=== PATIENT | female | born 1945 | race Caucasian/White ===

== ENCOUNTER 2018-07-07 05:42 | Day surgery (SDC) | payer OTHER, BC ==
[2018-07-06 18:13] VITALS: BMI 19.2
[2018-07-07 07:13] VITALS: TEMP 98
--- NOTE | 2018-07-07 07:18 | HP ---
Admitting History and Physical - Admission History of Present Illness: Patient is a 72 y/o female with a past medical history of depression. Patient reports she has been struggling with depression for all of her life. She was recently discharged from [facility] last week following a 2 week admission. Patient reports she has received 11 ect during her admission. Patient does report a significant improvement in depressive symptom since starting ect. Patient denies any suicidal or homicidal ideation, visual or auditory hallucinations. History Source: Patient Limitations to Obtaining History: No Limitations - Smoking History Smoking history: Never smoked Have you smoked in the past 12 months: No - Alcohol/Substance Use Hx Alcohol Use: No History of Substance Use: reports: None - Social History Usual Living Arrangement: Yes: Alone ADL: Independent History of Recent Travel: No Home Medications - Allergies Allergies/Adverse Reactions: Allergies Allergy/AdvReac Type Severity Reaction Status Date / Time No Known Allergies Allergy Verified 07/06/18 18:02 - Home Medications Home Medications: Ambulatory Orders Aripiprazole [Abilify] 10 mg PO DAILY 07/06/18 Venlafaxine HCl ER [Effexor Xr -] 75 mg PO DAILY 07/06/18 Family Disease History - Family Disease History Family History: Denies Review of Systems - Review of Systems Constitutional: reports: No Symptoms Eyes: reports: No Symptoms HENT: reports: No Symptoms Neck: reports: No Symptoms Cardiovascular: reports: No Symptoms Respiratory: reports: No Symptoms Gastrointestinal: reports: No Symptoms Genitourinary: reports: No Symptoms Breasts: reports: No Symptoms Reported Musculoskeletal: reports: No Symptoms Integumentary: reports: No Symptoms Neurological: reports: No Symptoms Endocrine: reports: No Symptoms Hematology/Lymphatic: reports: No Symptoms Psychiatric: reports: No Symptoms Physical Examination Vital Signs: Vital Signs Temperature 98.0 F 07/07/18 07:10 Pulse Rate 64 07/07/18 07:10 Respiratory Rate 18 07/07/18 07:10 Blood Pressure 124/71 07/07/18 07:10 O2 Sat by Pulse Oximetry (%) 98 07/07/18 07:10 Constitutional: Yes: Well Nourished, No Distress, Calm Eyes: Yes: WNL, Conjunctiva Clear, EOM Intact HENT: Yes: WNL, Atraumatic, Normocephalic Neck: Yes: WNL, Supple, Trachea Midline Cardiovascular: Yes: WNL, Regular Rate and Rhythm, S1, S2 Respiratory: Yes: WNL, Regular, CTA Bilaterally Gastrointestinal: Yes: WNL, Normal Bowel Sounds, Soft ...Rectal Exam: Yes: Deferred Renal/: Yes: WNL Musculoskeletal: Yes: WNL Extremities: Yes: WNL Edema: No Peripheral Pulses WNL: Yes Peripheral Pulses: Left Radial: 4+, Right Radial: 4+, Left Doralis Pedis: 3+, Right Dorsalis Pedis: 3+, Left Femoral: 3+, Right Femoral: 3+ Integumentary: Yes: WNL Neurological: Yes: WNL, Alert, Oriented ...Motor Strength: WNL Psychiatric: Yes: WNL, Alert, Oriented Labs: labs reviewed 06/06 Imaging - Results EKG: Other (nsr) Assessment/Plan patient is a 72 y/o female that presents for ect, labs and ekg reviewed, patient is medically optimized for procedure informed consent, risks/benefits to be obtained by Dr Smith
[2018-07-07] MEDS ORDERED: KETAMINE HCL 500 MG/10 ML VIAL ONE (07:52)
[2018-07-07 09:24] VITALS: BP 140/77; PULSE 69
== END 2018-07-07 09:25 | disposition home or self-care (01) ==
LOC: FECT 05:42
PROVIDERS: ATTEND Psychiatry & Neurology Psychiatry
PROC: GZB4ZZZ Other Electroconvulsive Therapy (ICD-10-PCS; principal; 2018-07-07 07:45)
DX: F33.2 Major depressive disorder, recurrent severe without psychotic features (principal)
CPT/HCPCS: 90870; 94760

== ENCOUNTER 2018-07-14 05:43 | Day surgery (SDC) | payer OTHER, BC ==
[2018-07-07 13:29] VITALS: BMI 19.2
[2018-07-14] MEDS ORDERED: KETAMINE HCL 500 MG/10 ML VIAL ONE (06:59)
[2018-07-14 08:37] VITALS: TEMP 97.7
[2018-07-14 09:02] VITALS: BP 116/66; PULSE 69
== END 2018-07-14 09:20 | disposition home or self-care (01) ==
LOC: FECT 05:43
PROVIDERS: ATTEND Psychiatry & Neurology Psychiatry
PROC: GZB4ZZZ Other Electroconvulsive Therapy (ICD-10-PCS; principal; 2018-07-14 07:00)
DX: F33.2 Major depressive disorder, recurrent severe without psychotic features (principal)
CPT/HCPCS: 90870; 94760

== ENCOUNTER 2018-07-21 05:38 | Day surgery (SDC) | payer OTHER, BC ==
[2018-07-21 06:49] VITALS: BMI 19.8
[2018-07-21] MEDS ORDERED: KETAMINE HCL 500 MG/10 ML VIAL ONE (07:27)
[2018-07-21 08:43] VITALS: TEMP 98.3
[2018-07-21 09:09] VITALS: BP 138/78; PULSE 79
== END 2018-07-21 09:15 | disposition home or self-care (01) ==
LOC: FECT 05:38
PROVIDERS: ATTEND Psychiatry & Neurology Psychiatry
PROC: GZB4ZZZ Other Electroconvulsive Therapy (ICD-10-PCS; principal; 2018-07-21 07:15)
DX: F33.2 Major depressive disorder, recurrent severe without psychotic features (principal)
CPT/HCPCS: 90870; 94760

== ENCOUNTER 2018-07-28 05:40 | Day surgery (SDC) | payer OTHER, BC ==
[2018-07-28 06:47] VITALS: TEMP 98.3; BMI 19.7
[2018-07-28] MEDS ORDERED: KETAMINE HCL 500 MG/10 ML VIAL ONE (07:10)
[2018-07-28 08:49] VITALS: BP 141/74; PULSE 69
== END 2018-07-28 08:45 | disposition home or self-care (01) ==
LOC: FECT 05:40
PROVIDERS: ATTEND Psychiatry & Neurology Psychiatry
PROC: GZB4ZZZ Other Electroconvulsive Therapy (ICD-10-PCS; principal; 2018-07-28 07:00)
DX: F33.2 Major depressive disorder, recurrent severe without psychotic features (principal)
CPT/HCPCS: 90870; 94760

== ENCOUNTER 2018-08-04 05:40 | Day surgery (SDC) | payer OTHER, BC ==
[2018-07-24 14:07] VITALS: BMI 19.2
[2018-08-04] MEDS ORDERED: KETAMINE HCL 500 MG/10 ML VIAL ONE (06:52)
[2018-08-04] MEDS ORDERED: ONDANSETRON 4 MG/2 ML VIAL IVPUSH PRN (07:44)
[2018-08-04] MEDS ORDERED: ACETAMINOPHEN 325 MG TABLET (FP) PO PRN (07:44)
[2018-08-04] MEDS ORDERED: LACTATED RINGERS SOLUTION 1,000 ML IV SCH (07:45)
[2018-08-04 08:09] VITALS: TEMP 97.7
[2018-08-04 09:01] VITALS: BP 140/56; PULSE 72
== END 2018-08-04 09:20 | disposition home or self-care (01) ==
LOC: FECT 05:40
PROVIDERS: ATTEND Psychiatry & Neurology Psychiatry
PROC: GZB4ZZZ Other Electroconvulsive Therapy (ICD-10-PCS; principal; 2018-08-04 07:00)
DX: F33.2 Major depressive disorder, recurrent severe without psychotic features (principal)
CPT/HCPCS: 90870; 94760

== ENCOUNTER 2018-08-11 05:40 | Day surgery (SDC) | payer OTHER, BC ==
[2018-08-03 11:51] VITALS: BMI 19.2
[2018-08-11 06:56] VITALS: TEMP 98
--- NOTE | 2018-08-11 07:18 | HP ---
Admitting History and Physical - Admission History of Present Illness: Patient is a 72 y/o female with a past medical history of depression. Patient presents for ect, her last ect was 08/04/18. Patient reports a significant improvement in depressive symptoms since starting ect. patient denies any changes to her medication and reports compliance with prescribed medications. Patient denies any recent illnesses or hospitalizations. Patient denies any suicidal or homicidal ideation, visual or auditory hallucinations. History Source: Patient Limitations to Obtaining History: No Limitations - Smoking History Smoking history: Never smoked Have you smoked in the past 12 months: No - Alcohol/Substance Use Hx Alcohol Use: No History of Substance Use: reports: None - Social History Usual Living Arrangement: Yes: With Spouse ADL: Independent History of Recent Travel: No Home Medications - Allergies Allergies/Adverse Reactions: Allergies Allergy/AdvReac Type Severity Reaction Status Date / Time No Known Allergies Allergy Verified 07/06/18 18:02 - Home Medications Home Medications: Ambulatory Orders Aripiprazole [Abilify] 10 mg PO DAILY 07/06/18 Venlafaxine HCl ER [Effexor Xr -] 75 mg PO DAILY 07/06/18 Family Disease History - Family Disease History Family History: Denies Review of Systems - Review of Systems Constitutional: reports: No Symptoms Eyes: reports: No Symptoms HENT: reports: No Symptoms Neck: reports: No Symptoms Cardiovascular: reports: No Symptoms Respiratory: reports: No Symptoms Gastrointestinal: reports: No Symptoms Genitourinary: reports: No Symptoms Musculoskeletal: reports: No Symptoms Integumentary: reports: No Symptoms Neurological: reports: No Symptoms Endocrine: reports: No Symptoms Hematology/Lymphatic: reports: No Symptoms Psychiatric: reports: No Symptoms Physical Examination Vital Signs: Vital Signs Temperature 98.0 F 08/11/18 06:54 Pulse Rate 73 08/11/18 06:54 Respiratory Rate 18 08/11/18 06:54 Blood Pressure 116/57 L 08/11/18 06:54 O2 Sat by Pulse Oximetry (%) 99 08/11/18 06:54 Constitutional: Yes: Well Nourished, No Distress, Calm Eyes: Yes: WNL, Conjunctiva Clear, EOM Intact HENT: Yes: WNL, Atraumatic, Normocephalic Neck: Yes: WNL, Supple, Trachea Midline Cardiovascular: Yes: WNL, Regular Rate and Rhythm, S1, S2 Respiratory: Yes: WNL, Regular, CTA Bilaterally Gastrointestinal: Yes: WNL, Normal Bowel Sounds, Soft ...Rectal Exam: Yes: Deferred Renal/: Yes: WNL Musculoskeletal: Yes: WNL Extremities: Yes: WNL Edema: No Peripheral Pulses WNL: Yes Peripheral Pulses: Left Radial: 4+, Right Radial: 4+, Left Doralis Pedis: 3+, Right Dorsalis Pedis: 3+, Left Femoral: 3+, Right Femoral: 3+ Integumentary: Yes: WNL Neurological: Yes: WNL, Alert, Oriented, Cran Nerves II-XII Intact ...Motor Strength: WNL Psychiatric: Yes: WNL, Alert, Oriented Labs: reviewed 06/06 Imaging - Results EKG: Image Reviewed, Other (nsr) Assessment/Plan patient is a 72 y/o female that presents for ect, labs and ekg reviewed patient is medically optimized for procedure informed consent, risks/benefits to be obtained by Dr Smith
[2018-08-11] MEDS ORDERED: KETAMINE HCL 500 MG/10 ML VIAL ONE (07:26)
[2018-08-11 09:04] VITALS: BP 120/81; PULSE 74
== END 2018-08-11 09:30 | disposition home or self-care (01) ==
LOC: FECT 05:40
PROVIDERS: ATTEND Psychiatry & Neurology Psychiatry
PROC: GZB4ZZZ Other Electroconvulsive Therapy (ICD-10-PCS; principal; 2018-08-11 07:00)
DX: F33.2 Major depressive disorder, recurrent severe without psychotic features (principal)
CPT/HCPCS: 90870; 94760

== ENCOUNTER 2018-08-18 05:34 | Day surgery (SDC) | payer OTHER, BC ==
[2018-08-18 07:08] VITALS: BMI 19.2
[2018-08-18] MEDS ORDERED: KETAMINE HCL 500 MG/10 ML VIAL ONE (07:31)
[2018-08-18 08:50] VITALS: TEMP 98.3
[2018-08-18 09:12] VITALS: BP 144/74; PULSE 71
== END 2018-08-18 09:30 | disposition home or self-care (01) ==
LOC: FECT 05:34
PROVIDERS: ATTEND Psychiatry & Neurology Psychiatry
PROC: GZB4ZZZ Other Electroconvulsive Therapy (ICD-10-PCS; principal; 2018-08-18 07:00)
DX: F33.2 Major depressive disorder, recurrent severe without psychotic features (principal)
CPT/HCPCS: 90870; 94760

== ENCOUNTER 2018-08-27 05:40 | Day surgery (SDC) | payer OTHER, BC ==
[2018-08-13 17:17] VITALS: BMI 19.2
[2018-08-27 06:53] VITALS: TEMP 98.2
[2018-08-27] MEDS ORDERED: KETAMINE HCL 500 MG/10 ML VIAL ONE (07:24)
[2018-08-27 09:18] VITALS: BP 139/72; PULSE 77
== END 2018-08-27 09:20 | disposition home or self-care (01) ==
LOC: FECT 05:40
PROVIDERS: ATTEND Psychiatry & Neurology Psychiatry
PROC: GZB4ZZZ Other Electroconvulsive Therapy (ICD-10-PCS; principal; 2018-08-27 07:30)
DX: F33.2 Major depressive disorder, recurrent severe without psychotic features (principal)
CPT/HCPCS: 90870; 94760

== ENCOUNTER 2018-09-08 05:44 | Day surgery (SDC) | payer OTHER, BC ==
[2018-08-26 17:55] VITALS: BMI 19.2
[2018-09-08 07:18] VITALS: TEMP 98
--- NOTE | 2018-09-08 07:39 | HP ---
CHIEF COMPLAINT: Major Depression PCP: Dr. Mariaelena Larios, [facility] Primary psychiatrist: Dr. Avendano, [place] HISTORY OF PRESENT ILLNESS: 72 year-old female with a PMH significant for major depression. Patient has been undergoing ECT since 2017. She presents today for ECT. Recent events: None PAST MEDICAL HISTORY: Major Depression PAST SURGICAL HISTORY: Spinal cyst removal (age 13) Tubal ligation Social History: lives with spouse who has dementia Smoking: never Alcohol: no Drugs: no Family History: Allergies No Known Allergies Allergy (Verified 07/06/18 18:02) HOME MEDICATIONS: Home Medications Medication Instructions Recorded Aripiprazole [Abilify] 10 mg PO DAILY 07/06/18 Venlafaxine HCl ER [Effexor Xr -] 75 mg PO DAILY 07/06/18 REVIEW OF SYSTEMS CONSTITUTIONAL: Absent: fever, chills, diaphoresis, generalized weakness, malaise, loss of appetite, weight change HEENT: Absent: rhinorrhea, nasal congestion, throat pain, throat swelling, difficulty swallowing, mouth swelling, ear pain, eye pain, visual changes CARDIOVASCULAR: Absent: chest pain, syncope, palpitations, irregular heart rate, lightheadedness , peripheral edema RESPIRATORY: Absent: cough, shortness of breath, dyspnea with exertion, orthopnea, wheezing, stridor, hemoptysis GASTROINTESTINAL: Absent: abdominal pain, abdominal distension, nausea, vomiting, diarrhea, constipation, melena, hematochezia GENITOURINARY: Absent: dysuria, frequency, urgency, hesitancy, hematuria, flank pain, genital pain MUSCULOSKELETAL: Absent: myalgia, arthralgia, joint swelling, back pain, neck pain SKIN: Absent: rash, itching, pallor HEMATOLOGIC/IMMUNOLOGIC: Absent: easy bleeding, easy bruising, lymphadenopathy, frequent infections ENDOCRINE: Absent: unexplained weight gain, unexplained weight loss, heat intolerance, cold intolerance NEUROLOGIC: Absent: headache, focal weakness or paresthesias, dizziness, unsteady gait, seizure, mental status changes, bladder or bowel incontinence PSYCHIATRIC: Absent: anxiety, depression, suicidal or homicidal ideation, hallucinations. PHYSICAL EXAMINATION Vital Signs - 24 hr 09/08/18 07:14 Temperature 98.0 F Pulse Rate 70 Respiratory 18 Rate Blood Pressure 141/69 O2 Sat by Pulse 99 Oximetry (%) GENERAL: Awake, alert, and fully oriented, in no acute distress. HEAD: Normal with no signs of trauma. LUNGS: Breath sounds equal, clear to auscultation bilaterally. No wheezes, and no crackles. No accessory muscle use. HEART: Regular rate and rhythm, normal S1 and S2 without murmur, rub or gallop. ABDOMEN: Soft, nontender, not distended, normoactive bowel sounds, no guarding, no rebound, no masses. No hepatomegaly or splenomegaly. MUSCULOSKELETAL: Normal range of motion at all joints. No bony deformities or tenderness. No CVA tenderness. UPPER EXTREMITIES: 2+ pulses, warm, well-perfused. No cyanosis. No clubbing. No peripheral edema. LOWER EXTREMITIES: 2+ pulses, warm, well-perfused. No calf tenderness. No peripheral edema. NEUROLOGICAL: Cranial nerves II-XII intact. Normal speech. Normal gait. ASSESSMENT/PLAN: 72 year-old female with a PMH significant for major depression. Presents today for ECT. Cardiac --Revised Cardiac Risk Index for Pre-Operative Risk: 0 points, 0.4% risk of major cardiac event Pulmonary --no pulmonary history Neurological --no neurological or neurosurgical history; no history of trauma Anesthesia --no known history of problems with anesthesia ECT is a low risk procedure. The relative benefits of the planned procedure outweigh the relative risks for this patient at this time. Visit type - Emergency Visit Emergency Visit: No - New Patient This patient is new to me today: Yes Date on this admission: 09/08/18 - Critical Care Critical Care patient: No
[2018-09-08] MEDS ORDERED: KETAMINE HCL 500 MG/10 ML VIAL ONE (08:10)
[2018-09-08 09:51] VITALS: BP 135/78; PULSE 77
== END 2018-09-08 09:45 | disposition home or self-care (01) ==
LOC: FECT 05:44
PROVIDERS: ATTEND Psychiatry & Neurology Psychiatry
PROC: GZB4ZZZ Other Electroconvulsive Therapy (ICD-10-PCS; principal; 2018-09-08 07:00)
DX: F33.2 Major depressive disorder, recurrent severe without psychotic features (principal)
CPT/HCPCS: 90870; 94760

== ENCOUNTER 2018-09-23 05:46 | Day surgery (SDC) | payer OTHER, BC ==
[2018-09-07 14:33] VITALS: BMI 19.2
[2018-09-23] MEDS ORDERED: KETAMINE HCL 500 MG/10 ML VIAL ONE (08:27)
[2018-09-23 09:24] VITALS: TEMP 98.7
[2018-09-23 09:57] VITALS: BP 136/59; PULSE 74
== END 2018-09-23 09:58 | disposition home or self-care (01) ==
LOC: FECT 05:46
PROVIDERS: ATTEND Psychiatry & Neurology Psychiatry
PROC: GZB4ZZZ Other Electroconvulsive Therapy (ICD-10-PCS; principal; 2018-09-23 08:00)
DX: F33.2 Major depressive disorder, recurrent severe without psychotic features (principal)
CPT/HCPCS: 90870; 94760

== ENCOUNTER 2018-10-07 05:43 | Day surgery (SDC) | payer OTHER, BC ==
[2018-10-07 06:51] VITALS: TEMP 97.9; BMI 18.8
[2018-10-07] MEDS ORDERED: KETAMINE HCL 500 MG/10 ML VIAL ONE (07:03)
[2018-10-07 09:17] VITALS: BP 131/69; PULSE 87
== END 2018-10-07 09:37 | disposition home or self-care (01) ==
LOC: FECT 05:43
PROVIDERS: ATTEND Psychiatry & Neurology Psychiatry
PROC: GZB4ZZZ Other Electroconvulsive Therapy (ICD-10-PCS; principal; 2018-10-07 07:45)
DX: F33.2 Major depressive disorder, recurrent severe without psychotic features (principal)
CPT/HCPCS: 90870; 94760

== ENCOUNTER 2018-10-21 05:49 | Day surgery (SDC) | payer OTHER, BC ==
[2018-10-08 15:13] VITALS: BMI 18.8
[2018-10-21] MEDS ORDERED: ONDANSETRON 4 MG/2 ML VIAL IVPUSH PRN (07:27)
[2018-10-21] MEDS ORDERED: LACTATED RINGERS SOLUTION 1,000 ML IV SCH (07:30)
[2018-10-21] MEDS ORDERED: KETAMINE HCL 500 MG/10 ML VIAL ONE (08:23)
[2018-10-21 11:08] VITALS: BP 118/66; PULSE 76; TEMP 98
--- NOTE | 2018-10-22 18:37 | HP ---
CHIEF COMPLAINT: Major Depressive Disorder HISTORY OF PRESENT ILLNESS: 72 year-old female with a PMH significant for major depressive disorder. Patient began ECT in June 2018. She presents today for ECT. Recent Events: * None reported PAST MEDICAL HISTORY: Major depressive disorder PAST SURGICAL HISTORY: None reported Allergies No Known Allergies Allergy (Verified 07/06/18 18:02) HOME MEDICATIONS: Home Medications Medication Instructions Recorded Aripiprazole [Abilify] 10 mg PO DAILY 07/06/18 Venlafaxine HCl ER [Effexor Xr -] 75 mg PO DAILY 07/06/18 REVIEW OF SYSTEMS CONSTITUTIONAL: Absent: fever, chills, diaphoresis, generalized weakness, malaise, loss of appetite, weight change HEENT: Absent: rhinorrhea, nasal congestion, throat pain, throat swelling, difficulty swallowing, mouth swelling, ear pain, eye pain, visual changes CARDIOVASCULAR: Absent: chest pain, syncope, palpitations, irregular heart rate, lightheadedness , peripheral edema RESPIRATORY: Absent: cough, shortness of breath, dyspnea with exertion, orthopnea, wheezing, stridor, hemoptysis GASTROINTESTINAL: Absent: abdominal pain, abdominal distension, nausea, vomiting, diarrhea, constipation, melena, hematochezia GENITOURINARY: Absent: dysuria, frequency, urgency, hesitancy, hematuria, flank pain, genital pain MUSCULOSKELETAL: Absent: myalgia, arthralgia, joint swelling, back pain, neck pain SKIN: Absent: rash, itching, pallor HEMATOLOGIC/IMMUNOLOGIC: Absent: easy bleeding, easy bruising, lymphadenopathy, frequent infections ENDOCRINE: Absent: unexplained weight gain, unexplained weight loss, heat intolerance, cold intolerance NEUROLOGIC: Absent: headache, focal weakness or paresthesias, dizziness, unsteady gait, seizure, mental status changes, bladder or bowel incontinence PHYSICAL EXAMINATION GENERAL: Awake, alert, and fully oriented, in no acute distress. HEAD: Normal with no signs of trauma. EYES: Pupils equal, round and reactive to light, sclera anicteric, conjunctiva clear. LUNGS: Breath sounds equal, clear to auscultation bilaterally. No wheezes, and no crackles. No accessory muscle use. HEART: Regular rate and rhythm, normal S1 and S2 ABDOMEN: Soft, nontender, not distended MUSCULOSKELETAL: Normal range of motion at all joints. No bony deformities or tenderness. No CVA tenderness. UPPER EXTREMITIES: 2+ pulses, warm, well-perfused. No cyanosis. No clubbing. No peripheral edema. LOWER EXTREMITIES: 2+ pulses, warm, well-perfused. No calf tenderness. No peripheral edema. NEUROLOGICAL: Cranial nerves II-XII intact. Normal speech. ASSESSMENT/PLAN: Cardiac --no cardiac history --Revised Cardiac Risk Index for Pre-Operative Risk: 0 points, 0.4% risk of major cardiac event Pulmonary --no pulmonary history Neurological --no neurological or neurosurgical history; no history of trauma Anesthesia --no reported problems with anesthesia ECT is a low risk procedure. The relative benefits of the planned procedure outweigh the relative risks for this patient at this time. Visit type - Emergency Visit Emergency Visit: No - New Patient This patient is new to me today: Yes Date on this admission: 10/22/18 - Critical Care Critical Care patient: No
== END 2018-10-21 10:45 | disposition home or self-care (01) ==
LOC: FECT 05:49
PROVIDERS: ATTEND Psychiatry & Neurology Psychiatry
PROC: GZB4ZZZ Other Electroconvulsive Therapy (ICD-10-PCS; principal; 2018-10-21 07:30)
DX: F33.2 Major depressive disorder, recurrent severe without psychotic features (principal)
CPT/HCPCS: 90870; 94760

== ENCOUNTER 2018-11-03 05:43 | Day surgery (SDC) | payer OTHER, BC ==
[2018-11-03] MEDS ORDERED: ONDANSETRON 4 MG/2 ML VIAL IVPUSH PRN (06:39)
[2018-11-03 07:21] VITALS: TEMP 97.9; BMI 18.9
[2018-11-03] MEDS ORDERED: KETAMINE HCL SYRINGES 150 MG/3 ML VIAL ONE (07:50)
[2018-11-03 10:19] VITALS: BP 144/73; PULSE 66
== END 2018-11-03 10:30 | disposition home or self-care (01) ==
LOC: FECT 05:43
PROVIDERS: ATTEND Psychiatry & Neurology Psychiatry
PROC: GZB4ZZZ Other Electroconvulsive Therapy (ICD-10-PCS; principal; 2018-11-03 07:00)
DX: F33.2 Major depressive disorder, recurrent severe without psychotic features (principal)
CPT/HCPCS: 90870; 94760

== ENCOUNTER 2018-11-17 05:44 | Day surgery (SDC) | payer OTHER, BC ==
[2018-11-17 07:41] VITALS: TEMP 98.4; BMI 18.4
[2018-11-17] MEDS ORDERED: KETAMINE HCL SYRINGES 150 MG/3 ML ONE (07:57)
[2018-11-17] MEDS ORDERED: ACETAMINOPHEN 325 MG TABLET (FP) PO PRN (08:44)
[2018-11-17] MEDS ORDERED: ONDANSETRON 4 MG/2 ML VIAL IVPUSH PRN (08:44)
[2018-11-17 09:46] VITALS: BP 127/70; PULSE 73
== END 2018-11-17 10:25 | disposition home or self-care (01) ==
LOC: FECT 05:44
PROVIDERS: ATTEND Psychiatry & Neurology Psychiatry
PROC: GZB4ZZZ Other Electroconvulsive Therapy (ICD-10-PCS; principal; 2018-11-17 07:00)
DX: F33.2 Major depressive disorder, recurrent severe without psychotic features (principal)
CPT/HCPCS: 90870; 94760

== ENCOUNTER 2018-12-03 05:48 | Day surgery (SDC) | payer OTHER, BC ==
[2018-12-03 07:40] VITALS: BMI 18.8
[2018-12-03 07:44] LABS: BASO % 0.9 % (0-2.0); EOS % 2.4 % (0-4.5); HEMATOCRIT 37.2 % (32.4-45.2); HEMOGLOBIN 12.8 GM/dl (10.7-15.3); LYMPH % 32.4 % (8-40); MCH 32.6 pg (25.7-33.7); MCHC 34.3 g/dl (32.0-36.0); MEAN PLT VOLUME 7.8 fl (7.5-11.1); MONO % 8.9 % (3.8-10.2); NEUT % 55.4 % (42.8-82.8); PLATELET COUNT 187 K/MM3 (134-434); RBC 3.92 M/mm3 (3.60-5.2); RDW 13.3 % (11.6-15.6); WHITE BLOOD COUNT 3.6 K/mm3 (4.0-10.8)
[2018-12-03] MEDS ORDERED: KETAMINE HCL SYRINGES 150 MG/3 ML ONE (08:10)
[2018-12-03 08:20] LABS: ALBUMIN 3.5 g/dl (3.4-5.0); ALK PHOS 40 U/L (45-117); ANION GAP 6 MMOL/L (8-16); BILIRUBIN,TOTAL 1.5 mg/dl (0.2-1); BLOOD UREA NITROGEN 19 mg/dl (7-18); CALCIUM 9.1 mg/dl (8.5-10); CHLORIDE 103 mmol/L (98-107); CO2 29 mmol/L (21-32); CREATININE 0.6 mg/dl (0.55-1.3); GLUCOSE,RANDOM 84 mg/dl (74-106); POTASSIUM 4.3 mmol/L (3.5-5.1); SGOT/AST 18 U/L (15-37); SGPT/ALT 23 U/L (13-61); SODIUM 138 mmol/L (136-145); TOT PROT 5.9 g/dl (6.4-8.2)
[2018-12-03 09:16] VITALS: TEMP 98.1
[2018-12-03 09:20] VITALS: BP 140/81; PULSE 71
--- NOTE | 2018-12-03 15:43 | EKG ---
Test Reason : Blood Pressure : / mmHG Vent. Rate : 079 BPM Atrial Rate : 079 BPM P-R Int : 098 ms QRS Dur : 082 ms QT Int : 370 ms P-R-T Axes : 076 001 070 degrees QTc Int : 424 ms SINUS RHYTHM WITH SHORT ND CANNOT RULE OUT ANTERIOR INFARCT , AGE UNDETERMINED ABNORMAL ECG NO PREVIOUS ECGS AVAILABLE Confirmed by NIKOLAS LOUISE MD ([id number]) on 12/03/2018 3:43:22 PM Referred By: Prosper Smith Confirmed By:NIKOLAS LOUISE MD
--- NOTE | 2018-12-04 16:27 | HP ---
CHIEF COMPLAINT: Major Depressive Disorder HISTORY OF PRESENT ILLNESS: 72 year-old female with a PMH significant for major depressive disorder. Patient began ECT in June 2018. She presents today for ECT. Recent Events: * None reported PAST MEDICAL HISTORY: Major depressive disorder PAST SURGICAL HISTORY: None reported Allergies No Known Allergies Allergy (Verified 07/06/18 18:02) HOME MEDICATIONS: Home Medications Medication Instructions Recorded Aripiprazole [Abilify] 10 mg PO DAILY 07/06/18 Venlafaxine HCl ER [Effexor Xr -] 75 mg PO DAILY 07/06/18 REVIEW OF SYSTEMS CONSTITUTIONAL: Absent: fever, chills, diaphoresis, generalized weakness, malaise, loss of appetite, weight change HEENT: Absent: rhinorrhea, nasal congestion, throat pain, throat swelling, difficulty swallowing, mouth swelling, ear pain, eye pain, visual changes CARDIOVASCULAR: Absent: chest pain, syncope, palpitations, irregular heart rate, lightheadedness , peripheral edema RESPIRATORY: Absent: cough, shortness of breath, dyspnea with exertion, orthopnea, wheezing, stridor, hemoptysis GASTROINTESTINAL: Absent: abdominal pain, abdominal distension, nausea, vomiting, diarrhea, constipation, melena, hematochezia GENITOURINARY: Absent: dysuria, frequency, urgency, hesitancy, hematuria, flank pain, genital pain MUSCULOSKELETAL: Absent: myalgia, arthralgia, joint swelling, back pain, neck pain SKIN: Absent: rash, itching, pallor HEMATOLOGIC/IMMUNOLOGIC: Absent: easy bleeding, easy bruising, lymphadenopathy, frequent infections ENDOCRINE: Absent: unexplained weight gain, unexplained weight loss, heat intolerance, cold intolerance NEUROLOGIC: Absent: headache, focal weakness or paresthesias, dizziness, unsteady gait, seizure, mental status changes, bladder or bowel incontinence PHYSICAL EXAMINATION GENERAL: Awake, alert, and fully oriented, in no acute distress. HEAD: Normal with no signs of trauma. EYES: Pupils equal, round and reactive to light, sclera anicteric, conjunctiva clear. LUNGS: Breath sounds equal, clear to auscultation bilaterally. No wheezes, and no crackles. No accessory muscle use. HEART: Regular rate and rhythm, normal S1 and S2 ABDOMEN: Soft, nontender, not distended MUSCULOSKELETAL: Normal range of motion at all joints. No bony deformities or tenderness. No CVA tenderness. UPPER EXTREMITIES: 2+ pulses, warm, well-perfused. No cyanosis. No clubbing. No peripheral edema. LOWER EXTREMITIES: 2+ pulses, warm, well-perfused. No calf tenderness. No peripheral edema. NEUROLOGICAL: Cranial nerves II-XII intact. Normal speech. ASSESSMENT/PLAN: 72 year-old female with a PMH significant for major depressive disorder. She presents today for ECT. Cardiac --no cardiac history --Revised Cardiac Risk Index for Pre-Operative Risk: 0 points, 0.4% risk of major cardiac event Pulmonary --no pulmonary history Neurological --no neurological or neurosurgical history; no history of trauma Anesthesia --no reported problems with anesthesia ECT is a low risk procedure. The relative benefits of the planned procedure outweigh the relative risks for this patient at this time. Visit type - Emergency Visit Emergency Visit: No - New Patient This patient is new to me today: Yes Date on this admission: 12/04/18 - Critical Care Critical Care patient: No
== END 2018-12-03 09:35 | disposition home or self-care (01) ==
LOC: FECT 05:48
PROVIDERS: ATTEND Psychiatry & Neurology Psychiatry
PROC: GZB4ZZZ Other Electroconvulsive Therapy (ICD-10-PCS; principal; 2018-12-03 07:45)
DX: F32.9 Major depressive disorder, single episode, unspecified (principal)
CPT/HCPCS: 36415; 80053; 83735; 85025; 90870; 93005; 94760

== ENCOUNTER 2018-12-24 05:50 | Day surgery (SDC) | payer OTHER, BC ==
[2018-12-24 06:56] VITALS: BMI 19.0
[2018-12-24] MEDS ORDERED: LACTATED RINGERS SOLUTION 1,000 ML IV SCH (07:00)
[2018-12-24] MEDS ORDERED: KETAMINE HCL SYRINGES 150 MG/3 ML ONE ×2 (07:09→07:37)
[2018-12-24 09:06] VITALS: TEMP 98.2
[2018-12-24 09:30] VITALS: BP 139/86; PULSE 77
== END 2018-12-24 09:50 | disposition home or self-care (01) ==
LOC: FECT 05:50
PROVIDERS: ATTEND Psychiatry & Neurology Psychiatry
PROC: GZB4ZZZ Other Electroconvulsive Therapy (ICD-10-PCS; principal; 2018-12-24 08:30)
DX: F32.9 Major depressive disorder, single episode, unspecified (principal)
CPT/HCPCS: 90870; 94760

== ENCOUNTER 2019-01-19 05:43 | Day surgery (SDC) | payer OTHER, BC ==
[2019-01-19 07:41] VITALS: BMI 18.6
[2019-01-19] MEDS ORDERED: KETAMINE HCL SYRINGES 150 MG/3 ML ONE (08:25)
[2019-01-19 10:32] VITALS: TEMP 97.9
[2019-01-19 10:33] VITALS: BP 136/66; PULSE 64
--- NOTE | 2019-01-19 11:56 | HP ---
CHIEF COMPLAINT: Major Depressive Disorder HISTORY OF PRESENT ILLNESS: 72 year-old female with a PMH significant for major depressive disorder. Patient began ECT in June 2018. She presents today for ECT. Recent Events: * None reported Allergies No Known Allergies Allergy (Verified 07/06/18 18:02) HOME MEDICATIONS: Home Medications Medication Instructions Recorded Aripiprazole [Abilify] 10 mg PO DAILY 07/06/18 Venlafaxine HCl ER [Effexor Xr -] 75 mg PO DAILY 07/06/18 REVIEW OF SYSTEMS CONSTITUTIONAL: Absent: fever, chills, diaphoresis, generalized weakness, malaise, loss of appetite, weight change HEENT: Absent: rhinorrhea, nasal congestion, throat pain, throat swelling, difficulty swallowing, mouth swelling, ear pain, eye pain, visual changes CARDIOVASCULAR: Absent: chest pain, syncope, palpitations, irregular heart rate, lightheadedness , peripheral edema RESPIRATORY: Absent: cough, shortness of breath, dyspnea with exertion, orthopnea, wheezing, stridor, hemoptysis GASTROINTESTINAL: Absent: abdominal pain, abdominal distension, nausea, vomiting, diarrhea, constipation, melena, hematochezia GENITOURINARY: Absent: dysuria, frequency, urgency, hesitancy, hematuria, flank pain, genital pain MUSCULOSKELETAL: Absent: myalgia, arthralgia, joint swelling, back pain, neck pain SKIN: Absent: rash, itching, pallor HEMATOLOGIC/IMMUNOLOGIC: Absent: easy bleeding, easy bruising, lymphadenopathy, frequent infections ENDOCRINE: Absent: unexplained weight gain, unexplained weight loss, heat intolerance, cold intolerance NEUROLOGIC: Absent: headache, focal weakness or paresthesias, dizziness, unsteady gait, seizure, mental status changes, bladder or bowel incontinence PHYSICAL EXAMINATION Vital Signs - 24 hr 01/19/19 01/19/19 01/19/19 07:27 08:46 08:50 Temperature 98.2 F Pulse Rate 80 68 66 Respiratory 18 18 12 Rate Blood Pressure 109/68 135/67 135/62 O2 Sat by Pulse 100 100 100 Oximetry (%) GENERAL: Awake, alert, and fully oriented, in no acute distress. HEAD: Normal with no signs of trauma. EYES: Pupils equal, round and reactive to light, sclera anicteric, conjunctiva clear. LUNGS: Breath sounds equal, clear to auscultation bilaterally. No wheezes, and no crackles. No accessory muscle use. HEART: Regular rate and rhythm, normal S1 and S2 ABDOMEN: Soft, nontender, not distended MUSCULOSKELETAL: Normal range of motion at all joints. No bony deformities or tenderness. No CVA tenderness. UPPER EXTREMITIES: 2+ pulses, warm, well-perfused. No cyanosis. No clubbing. No peripheral edema. LOWER EXTREMITIES: 2+ pulses, warm, well-perfused. No calf tenderness. No peripheral edema. NEUROLOGICAL: Cranial nerves II-XII intact. Normal speech. ASSESSMENT/PLAN: 72 year-old female with a PMH significant for major depressive disorder. She presents today for ECT. Cardiac --no cardiac history --Revised Cardiac Risk Index for Pre-Operative Risk: 0 points, 0.4% risk of major cardiac event Pulmonary --no pulmonary history Neurological --no neurological or neurosurgical history; no history of trauma Anesthesia --no reported problems with anesthesia ECT is a low risk procedure. The relative benefits of the planned procedure outweigh the relative risks for this patient at this time. Visit type - Emergency Visit Emergency Visit: No - New Patient This patient is new to me today: Yes Date on this admission: 01/19/19 - Critical Care Critical Care patient: No
== END 2019-01-19 10:30 | disposition home or self-care (01) ==
LOC: FECT 05:43
PROVIDERS: ATTEND Psychiatry & Neurology Psychiatry
PROC: GZB4ZZZ Other Electroconvulsive Therapy (ICD-10-PCS; principal; 2019-01-19 07:45)
DX: F32.9 Major depressive disorder, single episode, unspecified (principal)
CPT/HCPCS: 90870; 94760

== ENCOUNTER 2019-02-16 05:41 | Day surgery (SDC) | payer OTHER, BC ==
[2019-02-16 06:33] VITALS: BMI 18.5
[2019-02-16] MEDS ORDERED: KETAMINE HCL SYRINGES 150 MG/3 ML ONE (07:09)
[2019-02-16 08:31] VITALS: TEMP 97.9
[2019-02-16 08:57] VITALS: BP 124/63; PULSE 81
[2019-02-16] MEDS ORDERED: ONDANSETRON 4 MG/2 ML VIAL IVPUSH PRN (11:46)
[2019-02-16] MEDS ORDERED: LACTATED RINGERS SOLUTION 1,000 ML IV SCH (12:00)
--- NOTE | 2019-02-16 17:06 | HP ---
CHIEF COMPLAINT: Major Depressive Disorder HISTORY OF PRESENT ILLNESS: 72 year-old female with a PMH significant for major depressive disorder. Patient began ECT in June 2018. She presents today for ECT. Recent Events: * None reported Allergies No Known Allergies Allergy (Verified 07/06/18 18:02) HOME MEDICATIONS: Home Medications Medication Instructions Recorded Aripiprazole [Abilify] 10 mg PO DAILY 07/06/18 Venlafaxine HCl ER [Effexor Xr -] 75 mg PO DAILY 07/06/18 REVIEW OF SYSTEMS CONSTITUTIONAL: Absent: fever, chills, diaphoresis, generalized weakness, malaise, loss of appetite, weight change HEENT: Absent: rhinorrhea, nasal congestion, throat pain, throat swelling, difficulty swallowing, mouth swelling, ear pain, eye pain, visual changes CARDIOVASCULAR: Absent: chest pain, syncope, palpitations, irregular heart rate, lightheadedness , peripheral edema RESPIRATORY: Absent: cough, shortness of breath, dyspnea with exertion, orthopnea, wheezing, stridor, hemoptysis GASTROINTESTINAL: Absent: abdominal pain, abdominal distension, nausea, vomiting, diarrhea, constipation, melena, hematochezia GENITOURINARY: Absent: dysuria, frequency, urgency, hesitancy, hematuria, flank pain, genital pain MUSCULOSKELETAL: Absent: myalgia, arthralgia, joint swelling, back pain, neck pain SKIN: Absent: rash, itching, pallor HEMATOLOGIC/IMMUNOLOGIC: Absent: easy bleeding, easy bruising, lymphadenopathy, frequent infections ENDOCRINE: Absent: unexplained weight gain, unexplained weight loss, heat intolerance, cold intolerance NEUROLOGIC: Absent: headache, focal weakness or paresthesias, dizziness, unsteady gait, seizure, mental status changes, bladder or bowel incontinence PHYSICAL EXAMINATION Vital Signs - 24 hr 02/16/19 02/16/19 02/16/19 06:23 07:37 07:42 Temperature 98.5 F Pulse Rate 81 70 71 Respiratory 18 15 13 Rate Blood Pressure 115/52 L 120/50 L 115/64 O2 Sat by Pulse 100 99 100 Oximetry (%) 02/16/19 02/16/19 02/16/19 07:47 07:52 08:10 Temperature 97.9 F 97.9 F Pulse Rate 73 72 72 Respiratory 15 18 18 Rate Blood Pressure 131/65 125/85 139/67 O2 Sat by Pulse 100 96 Oximetry (%) 02/16/19 02/16/19 08:40 09:25 Temperature 97.9 F Pulse Rate 81 81 Respiratory 18 18 Rate Blood Pressure 124/63 124/63 O2 Sat by Pulse 99 Oximetry (%) GENERAL: Awake, alert, and fully oriented, in no acute distress. HEAD: Normal with no signs of trauma. EYES: Pupils equal, round and reactive to light, sclera anicteric, conjunctiva clear. LUNGS: Breath sounds equal, clear to auscultation bilaterally. No wheezes, and no crackles. No accessory muscle use. HEART: Regular rate and rhythm, normal S1 and S2 ABDOMEN: Soft, nontender, not distended MUSCULOSKELETAL: Normal range of motion at all joints. No bony deformities or tenderness. No CVA tenderness. UPPER EXTREMITIES: 2+ pulses, warm, well-perfused. No cyanosis. No clubbing. No peripheral edema. LOWER EXTREMITIES: 2+ pulses, warm, well-perfused. No calf tenderness. No peripheral edema. NEUROLOGICAL: Cranial nerves II-XII intact. Normal speech. ASSESSMENT/PLAN: 72 year-old female with a PMH significant for major depressive disorder. She presents today for ECT. Cardiac --no cardiac history --Revised Cardiac Risk Index for Pre-Operative Risk: 0 points, 0.4% risk of major cardiac event Pulmonary --no pulmonary history Neurological --no neurological or neurosurgical history; no history of trauma Anesthesia --no reported problems with anesthesia ECT is a low risk procedure. The relative benefits of the planned procedure outweigh the relative risks for this patient at this time. Visit type - Emergency Visit Emergency Visit: No - New Patient This patient is new to me today: Yes Date on this admission: 02/17/19 - Critical Care Critical Care patient: No
== END 2019-02-16 09:25 | disposition home or self-care (01) ==
LOC: FECT 05:41
PROVIDERS: ATTEND Psychiatry & Neurology Psychiatry
PROC: GZB4ZZZ Other Electroconvulsive Therapy (ICD-10-PCS; principal; 2019-02-16 07:00)
DX: F33.2 Major depressive disorder, recurrent severe without psychotic features (principal)
CPT/HCPCS: 90870; 94760

== ENCOUNTER 2019-03-16 05:55 | Day surgery (SDC) | payer OTHER, BC ==
[2019-03-16 06:30] VITALS: TEMP 98.3; BMI 18.6
[2019-03-16] MEDS ORDERED: KETAMINE HCL 500 MG/10 ML VIAL ONE (07:02)
[2019-03-16] MEDS ORDERED: ONDANSETRON 4 MG/2 ML VIAL IVPUSH PRN (07:44)
[2019-03-16] MEDS ORDERED: ACETAMINOPHEN 325 MG TABLET (FP) PO PRN (07:44)
[2019-03-16] MEDS ORDERED: LACTATED RINGERS SOLUTION 1,000 ML IV SCH (07:45)
[2019-03-16 09:15] VITALS: BP 133/67; PULSE 75
== END 2019-03-16 09:00 | disposition home or self-care (01) ==
LOC: FECT 05:55
PROVIDERS: ATTEND Psychiatry & Neurology Psychiatry
PROC: GZB4ZZZ Other Electroconvulsive Therapy (ICD-10-PCS; principal; 2019-03-16 07:00)
DX: F32.9 Major depressive disorder, single episode, unspecified (principal)
CPT/HCPCS: 90870; 94760

== ENCOUNTER → 2019-04-13 | Day surgery (SDC) | payer OTHER, BC | LOC: FECT 05:40 ==

== ENCOUNTER 2019-05-11 05:43 | Day surgery (SDC) | payer OTHER, BC ==
[2019-04-30 13:40] VITALS: BMI 18.8
[2019-05-11 07:29] VITALS: TEMP 98
[2019-05-11] MEDS ORDERED: KETAMINE HCL 500 MG/10 ML VIAL ONE (07:57)
--- NOTE | 2019-05-11 08:28 | HP ---
CHIEF COMPLAINT: Major Depressive Disorder HISTORY OF PRESENT ILLNESS: 72 year-old female with a PMH significant for major depressive disorder. Patient began ECT in June 2018. She presents today for ECT. Recent Events: * None reported Allergies No Known Allergies Allergy (Verified 04/30/19 13:35) HOME MEDICATIONS: Home Medications Medication Instructions Recorded Venlafaxine HCl ER [Effexor Xr -] 75 mg PO DAILY 07/06/18 Amitriptyline HCl [Elavil -] 75 mg PO HS 04/13/19 REVIEW OF SYSTEMS CONSTITUTIONAL: Absent: fever, chills, diaphoresis, generalized weakness, malaise, loss of appetite, weight change HEENT: Absent: rhinorrhea, nasal congestion, throat pain, throat swelling, difficulty swallowing, mouth swelling, ear pain, eye pain, visual changes CARDIOVASCULAR: Absent: chest pain, syncope, palpitations, irregular heart rate, lightheadedness , peripheral edema RESPIRATORY: Absent: cough, shortness of breath, dyspnea with exertion, orthopnea, wheezing, stridor, hemoptysis GASTROINTESTINAL: Absent: abdominal pain, abdominal distension, nausea, vomiting, diarrhea, constipation, melena, hematochezia GENITOURINARY: Absent: dysuria, frequency, urgency, hesitancy, hematuria, flank pain, genital pain MUSCULOSKELETAL: Absent: myalgia, arthralgia, joint swelling, back pain, neck pain SKIN: Absent: rash, itching, pallor HEMATOLOGIC/IMMUNOLOGIC: Absent: easy bleeding, easy bruising, lymphadenopathy, frequent infections ENDOCRINE: Absent: unexplained weight gain, unexplained weight loss, heat intolerance, cold intolerance NEUROLOGIC: Absent: headache, focal weakness or paresthesias, dizziness, unsteady gait, seizure, mental status changes, bladder or bowel incontinence PHYSICAL EXAMINATION Vital Signs - 24 hr 05/11/19 07:24 Temperature 98.0 F Pulse Rate 72 Respiratory 18 Rate Blood Pressure 115/64 O2 Sat by Pulse 98 Oximetry (%) GENERAL: Awake, alert, and fully oriented, in no acute distress. HEAD: Normal with no signs of trauma. EYES: Pupils equal, round and reactive to light, sclera anicteric, conjunctiva clear. LUNGS: Breath sounds equal, clear to auscultation bilaterally. No wheezes, and no crackles. No accessory muscle use. HEART: Regular rate and rhythm, normal S1 and S2 ABDOMEN: Soft, nontender, not distended MUSCULOSKELETAL: Normal range of motion at all joints. No bony deformities or tenderness. No CVA tenderness. UPPER EXTREMITIES: 2+ pulses, warm, well-perfused. No cyanosis. No clubbing. No peripheral edema. LOWER EXTREMITIES: 2+ pulses, warm, well-perfused. No calf tenderness. No peripheral edema. NEUROLOGICAL: Cranial nerves II-XII intact. Normal speech. ASSESSMENT/PLAN: 72 year-old female with a PMH significant for major depressive disorder. She presents today for ECT. Cardiac --no cardiac history --Revised Cardiac Risk Index for Pre-Operative Risk: 0 points, 0.4% risk of major cardiac event Pulmonary --no pulmonary history Neurological --no neurological or neurosurgical history; no history of trauma Anesthesia --no reported problems with anesthesia ECT is a low risk procedure. The relative benefits of the planned procedure outweigh the relative risks for this patient at this time. Visit type - Emergency Visit Emergency Visit: No - New Patient This patient is new to me today: Yes Date on this admission: 05/12/19 - Critical Care Critical Care patient: No
[2019-05-11] MEDS ORDERED: ACETAMINOPHEN 325 MG TABLET (FP) PO PRN (08:33)
[2019-05-11 10:55] VITALS: BP 129/64; PULSE 69
== END 2019-05-11 10:00 | disposition home or self-care (01) ==
LOC: FECT 05:43
PROVIDERS: ATTEND Psychiatry & Neurology Psychiatry
PROC: GZB4ZZZ Other Electroconvulsive Therapy (ICD-10-PCS; principal; 2019-05-11 07:00)
DX: F32.9 Major depressive disorder, single episode, unspecified (principal)
CPT/HCPCS: 90870; 94760

== ENCOUNTER 2019-06-08 05:37 | Day surgery (SDC) | payer OTHER, BC ==
--- NOTE | 2019-06-08 07:11 | HP ---
CHIEF COMPLAINT: Major Depressive Disorder PCP: Dr. Mariaelena Castillo [facility] Primary Psychiatrist: Simran Avendano, [place] HISTORY OF PRESENT ILLNESS: 72 year-old female with a PMH significant for major depressive disorder. Patient began ECT in June 2018. She presents today for ECT. 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 Smoking: never Alcohol: no Drugs: no Family History: Mother 80 complications from hip surgery; father 80 ruptured colon; brother 86 with Parkinsons; brother 84 a&w; 2 sons a&w Allergies No Known Allergies Allergy (Verified 04/30/19 13:35) HOME MEDICATIONS: Home Medications Medication Instructions Recorded Venlafaxine HCl ER [Effexor Xr -] 75 mg PO DAILY 07/06/18 Amitriptyline HCl [Elavil -] 75 mg PO HS 04/13/19 REVIEW OF SYSTEMS CONSTITUTIONAL: Absent: fever, chills, diaphoresis, generalized weakness, malaise, loss of appetite, weight change HEENT: Absent: rhinorrhea, nasal congestion, throat pain, throat swelling, difficulty swallowing, mouth swelling, ear pain, eye pain, visual changes CARDIOVASCULAR: Absent: chest pain, syncope, palpitations, irregular heart rate, lightheadedness , peripheral edema RESPIRATORY: Absent: cough, shortness of breath, dyspnea with exertion, orthopnea, wheezing, stridor, hemoptysis GASTROINTESTINAL: Absent: abdominal pain, abdominal distension, nausea, vomiting, diarrhea, constipation, melena, hematochezia GENITOURINARY: Absent: dysuria, frequency, urgency, hesitancy, hematuria, flank pain, genital pain MUSCULOSKELETAL: Absent: myalgia, arthralgia, joint swelling, back pain, neck pain SKIN: Absent: rash, itching, pallor HEMATOLOGIC/IMMUNOLOGIC: Absent: easy bleeding, easy bruising, lymphadenopathy, frequent infections ENDOCRINE: Absent: unexplained weight gain, unexplained weight loss, heat intolerance, cold intolerance NEUROLOGIC: Absent: headache, focal weakness or paresthesias, dizziness, unsteady gait, seizure, mental status changes, bladder or bowel incontinence PHYSICAL EXAMINATION GENERAL: Awake, alert, and fully oriented, in no acute distress. HEAD: Normal with no signs of trauma. EYES: Pupils equal, round and reactive to light, sclera anicteric, conjunctiva clear. LUNGS: Breath sounds equal, clear to auscultation bilaterally. No wheezes, and no crackles. No accessory muscle use. HEART: Regular rate and rhythm, normal S1 and S2 ABDOMEN: Soft, nontender, not distended MUSCULOSKELETAL: Normal range of motion at all joints. No bony deformities or tenderness. No CVA tenderness. UPPER EXTREMITIES: 2+ pulses, warm, well-perfused. No cyanosis. No clubbing. No peripheral edema. LOWER EXTREMITIES: 2+ pulses, warm, well-perfused. No calf tenderness. No peripheral edema. NEUROLOGICAL: Cranial nerves II-XII intact. Normal speech. ASSESSMENT/PLAN: 72 year-old female with a PMH significant for major depressive disorder. She presents today for ECT. Cardiac --no cardiac history --Revised Cardiac Risk Index for Pre-Operative Risk: 0 points, 0.4% risk of major cardiac event Pulmonary --no pulmonary history Neurological --no neurological or neurosurgical history; no history of trauma Anesthesia --no reported problems with anesthesia ECT is a low risk procedure. The relative benefits of the planned procedure outweigh the relative risks for this patient at this time. Visit type - Emergency Visit Emergency Visit: No - New Patient This patient is new to me today: Yes Date on this admission: 06/08/19 - Critical Care Critical Care patient: No
[2019-06-08] MEDS ORDERED: ACETAMINOPHEN 325 MG TABLET (FP) PO PRN (07:36)
[2019-06-08] MEDS ORDERED: ONDANSETRON 4 MG/2 ML VIAL IVPUSH PRN (07:36)
[2019-06-08] MEDS ORDERED: oxyCODONE HCL 5 MG TABLET PO PRN (07:36)
[2019-06-08 07:50] VITALS: BMI 18.8
[2019-06-08 08:16] LABS: BASO % 0.8 % (0-2.0); EOS % 5.2 % (0-4.5); HEMATOCRIT 33.4 % (32.4-45.2); HEMOGLOBIN 11.4 GM/dl (10.7-15.3); LYMPH % 35.1 % (8-40); MCH 32.9 pg (25.7-33.7); MEAN CELL VOLUME 96.7 fl (80-96); MEAN PLT VOLUME 8.1 fl (7.5-11.1); MONO % 10.5 % (3.8-10.2); NEUT % 48.4 % (42.8-82.8); PLATELET COUNT 167 K/MM3 (134-434); RBC 3.45 M/mm3 (3.60-5.2); RDW 13.3 % (11.6-15.6); WHITE BLOOD COUNT 4.1 K/mm3 (4.0-10.8)
[2019-06-08 08:24] LABS: ALBUMIN 3.3 g/dl (3.4-5.0); BILIRUBIN,TOTAL 0.9 mg/dl (0.2-1); CALCIUM 8.7 mg/dl (8.5-10); CREATININE 0.6 mg/dl (0.55-1.3); TOT PROT 5.9 g/dl (6.4-8.2)
[2019-06-08] MEDS ORDERED: KETAMINE HCL 500 MG/10 ML VIAL ONE (08:24)
[2019-06-08 09:42] VITALS: TEMP 98
[2019-06-08 10:49] VITALS: BP 140/72; PULSE 72
--- NOTE | 2019-06-08 13:37 | EKG ---
Test Reason : Blood Pressure : / mmHG Vent. Rate : 068 BPM Atrial Rate : 068 BPM P-R Int : 164 ms QRS Dur : 088 ms QT Int : 390 ms P-R-T Axes : 079 -01 058 degrees QTc Int : 414 ms NORMAL SINUS RHYTHM POSSIBLE LEFT ATRIAL ENLARGEMENT POSSIBLE ANTERIOR INFARCT (CITED ON OR BEFORE 03-DEC-2018) ABNORMAL ECG WHEN COMPARED WITH ECG OF 03-DEC-2018 09:26, NO SIGNIFICANT CHANGE WAS FOUND Confirmed by MD ALFIE, BRIAN ([id number]) on 06/08/2019 1:37:00 PM Referred By: Prosper Smith Confirmed By:BRIAN JUDGE MD
== END 2019-06-08 10:53 | disposition home or self-care (01) ==
LOC: FECT 05:37
PROVIDERS: ATTEND Psychiatry & Neurology Psychiatry
PROC: GZB4ZZZ Other Electroconvulsive Therapy (ICD-10-PCS; principal; 2019-06-08 07:00)
DX: F32.9 Major depressive disorder, single episode, unspecified (principal)
CPT/HCPCS: 36415; 80053; 83735; 85025; 90870; 93005; 94760

== ENCOUNTER 2019-07-16 06:59 | Day surgery (SDC) | payer OTHER, BC ==
[2019-07-16 07:37] VITALS: BMI 18.6
[2019-07-16] MEDS ORDERED: KETAMINE HCL 500 MG/10 ML VIAL ONE (07:56)
[2019-07-16] MEDS ORDERED: ONDANSETRON 4 MG/2 ML VIAL IVPUSH PRN (08:23)
[2019-07-16] MEDS ORDERED: LACTATED RINGERS SOLUTION 1,000 ML IV SCH (08:30)
[2019-07-16 09:13] VITALS: TEMP 98.3
[2019-07-16 09:48] VITALS: BP 115/75; PULSE 69
--- NOTE | 2019-07-20 10:24 | HP ---
CHIEF COMPLAINT: Major Depressive Disorder PCP: Dr. Mariaelena Castillo [facility] Primary Psychiatrist: Simran Avendano, [place] HISTORY OF PRESENT ILLNESS: 72 year-old female with a PMH significant for major depressive disorder. Patient began ECT in June 2018. She presents today for ECT. 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 Smoking: never Alcohol: no Drugs: no Family History: Mother 80 complications from hip surgery; father 80 ruptured colon; brother 86 with Parkinsons; brother 84 a&w; 2 sons a&w Allergies No Known Allergies Allergy (Verified 07/07/19 17:20) HOME MEDICATIONS: Home Medications Medication Instructions Recorded Venlafaxine HCl ER [Effexor Xr -] 150 mg PO DAILY 07/06/18 Amitriptyline HCl [Elavil -] 75 mg PO HS 04/13/19 REVIEW OF SYSTEMS CONSTITUTIONAL: Absent: fever, chills, diaphoresis, generalized weakness, malaise, loss of appetite, weight change HEENT: Absent: rhinorrhea, nasal congestion, throat pain, throat swelling, difficulty swallowing, mouth swelling, ear pain, eye pain, visual changes CARDIOVASCULAR: Absent: chest pain, syncope, palpitations, irregular heart rate, lightheadedness , peripheral edema RESPIRATORY: Absent: cough, shortness of breath, dyspnea with exertion, orthopnea, wheezing, stridor, hemoptysis GASTROINTESTINAL: Absent: abdominal pain, abdominal distension, nausea, vomiting, diarrhea, constipation, melena, hematochezia GENITOURINARY: Absent: dysuria, frequency, urgency, hesitancy, hematuria, flank pain, genital pain MUSCULOSKELETAL: Absent: myalgia, arthralgia, joint swelling, back pain, neck pain SKIN: Absent: rash, itching, pallor HEMATOLOGIC/IMMUNOLOGIC: Absent: easy bleeding, easy bruising, lymphadenopathy, frequent infections ENDOCRINE: Absent: unexplained weight gain, unexplained weight loss, heat intolerance, cold intolerance NEUROLOGIC: Absent: headache, focal weakness or paresthesias, dizziness, unsteady gait, seizure, mental status changes, bladder or bowel incontinence PHYSICAL EXAMINATION GENERAL: Awake, alert, and fully oriented, in no acute distress. HEAD: Normal with no signs of trauma. EYES: Pupils equal, round and reactive to light, sclera anicteric, conjunctiva clear. LUNGS: Breath sounds equal, clear to auscultation bilaterally. No wheezes, and no crackles. No accessory muscle use. HEART: Regular rate and rhythm, normal S1 and S2 ABDOMEN: Soft, nontender, not distended MUSCULOSKELETAL: Normal range of motion at all joints. No bony deformities or tenderness. No CVA tenderness. UPPER EXTREMITIES: 2+ pulses, warm, well-perfused. No cyanosis. No clubbing. No peripheral edema. LOWER EXTREMITIES: 2+ pulses, warm, well-perfused. No calf tenderness. No peripheral edema. NEUROLOGICAL: Cranial nerves II-XII intact. Normal speech. ASSESSMENT/PLAN: 72 year-old female with a PMH significant for major depressive disorder. She presents today for ECT. Cardiac --no cardiac history --Revised Cardiac Risk Index for Pre-Operative Risk: 0 points, 0.4% risk of major cardiac event Pulmonary --no pulmonary history Neurological --no neurological or neurosurgical history; no history of trauma Anesthesia --no reported problems with anesthesia ECT is a low risk procedure. The relative benefits of the planned procedure outweigh the relative risks for this patient at this time. Visit type - Emergency Visit Emergency Visit: No - New Patient This patient is new to me today: Yes Date on this admission: 07/20/19 - Critical Care Critical Care patient: No
== END 2019-07-16 10:00 | disposition home or self-care (01) ==
LOC: FECT 06:59
PROVIDERS: ATTEND Psychiatry & Neurology Psychiatry
PROC: GZB4ZZZ Other Electroconvulsive Therapy (ICD-10-PCS; principal; 2019-07-16 07:45)
DX: F32.9 Major depressive disorder, single episode, unspecified (principal)
CPT/HCPCS: 90870; 94760

== ENCOUNTER 2019-09-09 05:39 | Day surgery (SDC) | payer OTHER, BC ==
[2019-09-09 07:31] VITALS: BMI 19.5
[2019-09-09] MEDS ORDERED: KETAMINE HCL 500 MG/10 ML VIAL ONE (07:41)
[2019-09-09] MEDS ORDERED: LACTATED RINGERS SOLUTION 1,000 ML IV SCH (08:00)
[2019-09-09 09:06] VITALS: TEMP 98.1
[2019-09-09 10:40] VITALS: BP 126/64; PULSE 82
--- NOTE | 2019-09-09 16:04 | HP ---
CHIEF COMPLAINT: Major Depressive Disorder PCP: Dr. Mariaelena Castillo [facility] Primary Psychiatrist: Simran Avendano, [place] HISTORY OF PRESENT ILLNESS: 72 year-old female with a PMH significant for major depressive disorder. Patient began ECT in June 2018. She presents today for ECT. 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 Smoking: never Alcohol: no Drugs: no Family History: Mother 80 complications from hip surgery; father 80 ruptured colon; brother 86 with Parkinsons; brother 84 a&w; 2 sons a&w Allergies No Known Allergies Allergy (Verified 07/07/19 17:20) HOME MEDICATIONS: Home Medications Medication Instructions Recorded Venlafaxine HCl ER [Effexor Xr -] 150 mg PO DAILY 07/06/18 Amitriptyline HCl [Elavil -] 75 mg PO HS 04/13/19 REVIEW OF SYSTEMS CONSTITUTIONAL: Absent: fever, chills, diaphoresis, generalized weakness, malaise, loss of appetite, weight change HEENT: Absent: rhinorrhea, nasal congestion, throat pain, throat swelling, difficulty swallowing, mouth swelling, ear pain, eye pain, visual changes CARDIOVASCULAR: Absent: chest pain, syncope, palpitations, irregular heart rate, lightheadedness , peripheral edema RESPIRATORY: Absent: cough, shortness of breath, dyspnea with exertion, orthopnea, wheezing, stridor, hemoptysis GASTROINTESTINAL: Absent: abdominal pain, abdominal distension, nausea, vomiting, diarrhea, constipation, melena, hematochezia GENITOURINARY: Absent: dysuria, frequency, urgency, hesitancy, hematuria, flank pain, genital pain MUSCULOSKELETAL: Absent: myalgia, arthralgia, joint swelling, back pain, neck pain SKIN: Absent: rash, itching, pallor HEMATOLOGIC/IMMUNOLOGIC: Absent: easy bleeding, easy bruising, lymphadenopathy, frequent infections ENDOCRINE: Absent: unexplained weight gain, unexplained weight loss, heat intolerance, cold intolerance NEUROLOGIC: Absent: headache, focal weakness or paresthesias, dizziness, unsteady gait, seizure, mental status changes, bladder or bowel incontinence PHYSICAL EXAMINATION Vital Signs - 24 hr 09/09/19 09/09/19 09/09/19 07:14 08:11 08:15 Temperature 98.0 F Pulse Rate 86 72 80 Respiratory 18 18 16 Rate Blood Pressure 93/56 L 123/56 L 123/58 L O2 Sat by Pulse 100 100 100 Oximetry (%) 09/09/19 09/09/19 09/09/19 08:20 08:25 08:30 Temperature 98.1 F Pulse Rate 82 78 80 Respiratory 14 15 18 Rate Blood Pressure 128/64 138/71 129/54 L O2 Sat by Pulse 100 100 99 Oximetry (%) 09/09/19 09/09/19 09/09/19 08:34 09:00 10:15 Temperature 98.1 F Pulse Rate 75 82 82 Respiratory 16 18 18 Rate Blood Pressure 142/70 126/64 126/64 O2 Sat by Pulse 100 96 Oximetry (%) GENERAL: Awake, alert, and fully oriented, in no acute distress. HEAD: Normal with no signs of trauma. EYES: Pupils equal, round and reactive to light, sclera anicteric, conjunctiva clear. LUNGS: Breath sounds equal, clear to auscultation bilaterally. No wheezes, and no crackles. No accessory muscle use. HEART: Regular rate and rhythm, normal S1 and S2 ABDOMEN: Soft, nontender, not distended MUSCULOSKELETAL: Normal range of motion at all joints. No bony deformities or tenderness. No CVA tenderness. UPPER EXTREMITIES: 2+ pulses, warm, well-perfused. No cyanosis. No clubbing. No peripheral edema. LOWER EXTREMITIES: 2+ pulses, warm, well-perfused. No calf tenderness. No peripheral edema. NEUROLOGICAL: Cranial nerves II-XII intact. Normal speech. ASSESSMENT/PLAN: 72 year-old female with a PMH significant for major depressive disorder. She presents today for ECT. Cardiac --no cardiac history --Revised Cardiac Risk Index for Pre-Operative Risk: 0 points, 0.4% risk of major cardiac event Pulmonary --no pulmonary history Neurological --no neurological or neurosurgical history; no history of trauma Anesthesia --no reported problems with anesthesia ECT is a low risk procedure. The relative benefits of the planned procedure outweigh the relative risks for this patient at this time. Visit type - Emergency Visit Emergency Visit: No - New Patient This patient is new to me today: Yes Date on this admission: 09/09/19 - Critical Care Critical Care patient: No
== END 2019-09-09 10:15 | disposition home or self-care (01) ==
LOC: FECT 05:39
PROVIDERS: ATTEND Psychiatry & Neurology Psychiatry
PROC: GZB4ZZZ Other Electroconvulsive Therapy (ICD-10-PCS; principal; 2019-09-09 07:15)
DX: F32.9 Major depressive disorder, single episode, unspecified (principal)
CPT/HCPCS: 90870; 94760

== ENCOUNTER 2019-10-07 06:30 | Day surgery (SDC) | payer OTHER, BC ==
[~2019-10-07 06:30] MED LIST: LACTATED RINGERS SOLUTION 1,000 ML IV SCH
[2019-10-07] MEDS ORDERED: LACTATED RINGERS SOLUTION 1,000 ML IV SCH (07:00)
[2019-10-07 07:10] VITALS: BMI 18.0
[2019-10-07] MEDS ORDERED: KETAMINE HCL 500 MG/10 ML VIAL ONE (07:33)
[2019-10-07 09:01] VITALS: TEMP 97.8
[2019-10-07 09:41] VITALS: BP 138/64; PULSE 78
== END 2019-10-07 09:50 | disposition home or self-care (01) ==
LOC: FECT 06:30
PROVIDERS: ATTEND Psychiatry & Neurology Psychiatry
PROC: GZB4ZZZ Other Electroconvulsive Therapy (ICD-10-PCS; principal; 2019-10-07 08:15)
DX: F32.9 Major depressive disorder, single episode, unspecified (principal)
CPT/HCPCS: 90870; 94760

== ENCOUNTER 2019-11-02 05:44 | Day surgery (SDC) | payer OTHER, BC ==
[2019-11-02 07:17] VITALS: BMI 18.0
--- NOTE | 2019-11-02 07:30 | HP ---
CHIEF COMPLAINT: Major Depressive Disorder PCP: Dr. Mariaelena Castillo [facility] Primary Psychiatrist: Simran Avendano, [place] HISTORY OF PRESENT ILLNESS: 72 year-old female with a PMH significant for major depressive disorder. Patient began ECT in June 2018. She presents today for ECT. 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 Smoking: never Alcohol: no Drugs: no Family History: Mother 80 complications from hip surgery; father 80 ruptured colon; brother 86 with Parkinsons; brother 84 a&w; 2 sons a&w Allergies No Known Allergies Allergy (Verified 07/07/19 17:20) HOME MEDICATIONS: Home Medications Medication Instructions Recorded Venlafaxine HCl ER [Effexor Xr -] 150 mg PO DAILY 07/06/18 Amitriptyline HCl [Elavil -] 75 mg PO HS 04/13/19 REVIEW OF SYSTEMS CONSTITUTIONAL: Absent: fever, chills, diaphoresis, generalized weakness, malaise, loss of appetite, weight change HEENT: Absent: rhinorrhea, nasal congestion, throat pain, throat swelling, difficulty swallowing, mouth swelling, ear pain, eye pain, visual changes CARDIOVASCULAR: Absent: chest pain, syncope, palpitations, irregular heart rate, lightheadedness , peripheral edema RESPIRATORY: Absent: cough, shortness of breath, dyspnea with exertion, orthopnea, wheezing, stridor, hemoptysis GASTROINTESTINAL: Absent: abdominal pain, abdominal distension, nausea, vomiting, diarrhea, constipation, melena, hematochezia GENITOURINARY: Absent: dysuria, frequency, urgency, hesitancy, hematuria, flank pain, genital pain MUSCULOSKELETAL: Absent: myalgia, arthralgia, joint swelling, back pain, neck pain SKIN: Absent: rash, itching, pallor HEMATOLOGIC/IMMUNOLOGIC: Absent: easy bleeding, easy bruising, lymphadenopathy, frequent infections ENDOCRINE: Absent: unexplained weight gain, unexplained weight loss, heat intolerance, cold intolerance NEUROLOGIC: Absent: headache, focal weakness or paresthesias, dizziness, unsteady gait, seizure, mental status changes, bladder or bowel incontinence PHYSICAL EXAMINATION Vital Signs - 24 hr 11/02/19 07:11 Temperature 98.1 F Pulse Rate 71 Respiratory 18 Rate Blood Pressure 126/67 O2 Sat by Pulse 99 Oximetry (%) GENERAL: Awake, alert, and fully oriented, in no acute distress. HEAD: Normal with no signs of trauma. EYES: Pupils equal, round and reactive to light, sclera anicteric, conjunctiva clear. LUNGS: Breath sounds equal, clear to auscultation bilaterally. No wheezes, and no crackles. No accessory muscle use. HEART: Regular rate and rhythm, normal S1 and S2 ABDOMEN: Soft, nontender, not distended MUSCULOSKELETAL: Normal range of motion at all joints. No bony deformities or tenderness. No CVA tenderness. UPPER EXTREMITIES: 2+ pulses, warm, well-perfused. No cyanosis. No clubbing. No peripheral edema. LOWER EXTREMITIES: 2+ pulses, warm, well-perfused. No calf tenderness. No peripheral edema. NEUROLOGICAL: Cranial nerves II-XII intact. Normal speech. ASSESSMENT/PLAN: 72 year-old female with a PMH significant for major depressive disorder. She presents today for ECT. Cardiac --no cardiac history --Revised Cardiac Risk Index for Pre-Operative Risk: 0 points, 0.4% risk of major cardiac event Pulmonary --no pulmonary history Neurological --no neurological or neurosurgical history; no history of trauma Anesthesia --no reported problems with anesthesia ECT is a low risk procedure. The relative benefits of the planned procedure outweigh the relative risks for this patient at this time. Visit type - Emergency Visit Emergency Visit: No - New Patient This patient is new to me today: Yes Date on this admission: 11/02/19 - Critical Care Critical Care patient: No
[2019-11-02] MEDS ORDERED: KETAMINE HCL 500 MG/10 ML VIAL ONE (07:35)
[2019-11-02 08:44] VITALS: TEMP 98.2
[2019-11-02 09:05] VITALS: BP 138/78; PULSE 77
== END 2019-11-02 09:35 | disposition home or self-care (01) ==
LOC: FECT 05:44
PROVIDERS: ATTEND Psychiatry & Neurology Psychiatry
PROC: GZB4ZZZ Other Electroconvulsive Therapy (ICD-10-PCS; principal; 2019-11-02 07:00)
DX: F32.9 Major depressive disorder, single episode, unspecified (principal)
CPT/HCPCS: 90870; 94760

== ENCOUNTER 2019-11-30 05:40 | Day surgery (SDC) | payer OTHER, BC ==
[2019-11-30 06:43] VITALS: BMI 18.5
[2019-11-30] MEDS ORDERED: ONDANSETRON 4 MG/2 ML VIAL IVPUSH PRN (07:20)
[2019-11-30] MEDS ORDERED: KETAMINE HCL 500 MG/10 ML VIAL ONE (07:25)
[2019-11-30] MEDS ORDERED: LACTATED RINGERS SOLUTION 1,000 ML IV SCH (07:30)
[2019-11-30 08:38] VITALS: PULSE 79
[2019-11-30 09:12] VITALS: TEMP 98.3
[2019-11-30 10:38] VITALS: BP 134/72
== END 2019-11-30 09:50 | disposition home or self-care (01) ==
LOC: FECT 05:40
PROVIDERS: ATTEND Psychiatry & Neurology Psychiatry
PROC: GZB4ZZZ Other Electroconvulsive Therapy (ICD-10-PCS; principal; 2019-11-30 07:00)
DX: F33.2 Major depressive disorder, recurrent severe without psychotic features (principal)
CPT/HCPCS: 90870; 94760

== ENCOUNTER 2019-12-28 05:44 | Day surgery (SDC) | payer OTHER, BC ==
[2019-12-28 07:05] VITALS: TEMP 98.1; BMI 18.4
--- NOTE | 2019-12-28 07:29 | HP ---
CHIEF COMPLAINT: Major Depressive Disorder PCP: Dr. Mariaelena Castillo [facility] Primary Psychiatrist: Simran Avendano, [place] HISTORY OF PRESENT ILLNESS: 72 year-old female with a PMH significant for major depressive disorder. Patient began ECT in June 2018. She presents today for ECT. 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 Smoking: never Alcohol: no Drugs: no Family History: Mother 80 complications from hip surgery; father 80 ruptured colon; brother 86 with Parkinsons; brother 84 a&w; 2 sons a&w Allergies No Known Allergies Allergy (Verified 07/07/19 17:20) HOME MEDICATIONS: Home Medications Medication Instructions Recorded Venlafaxine HCl ER [Effexor Xr -] 150 mg PO DAILY 07/06/18 Amitriptyline HCl [Elavil -] 75 mg PO HS 04/13/19 Aripiprazole [Abilify] 5 mg PO DAILY 11/30/19 REVIEW OF SYSTEMS CONSTITUTIONAL: Absent: fever, chills, diaphoresis, generalized weakness, malaise, loss of appetite, weight change HEENT: Absent: rhinorrhea, nasal congestion, throat pain, throat swelling, difficulty swallowing, mouth swelling, ear pain, eye pain, visual changes CARDIOVASCULAR: Absent: chest pain, syncope, palpitations, irregular heart rate, lightheadedness, peripheral edema RESPIRATORY: Absent: cough, shortness of breath, dyspnea with exertion, orthopnea, wheezing, stridor, hemoptysis GASTROINTESTINAL: Absent: abdominal pain, abdominal distension, nausea, vomiting, diarrhea, constipation, melena, hematochezia GENITOURINARY: Absent: dysuria, frequency, urgency, hesitancy, hematuria, flank pain, genital pain MUSCULOSKELETAL: Absent: myalgia, arthralgia, joint swelling, back pain, neck pain SKIN: Absent: rash, itching, pallor HEMATOLOGIC/IMMUNOLOGIC: Absent: easy bleeding, easy bruising, lymphadenopathy, frequent infections ENDOCRINE: Absent: unexplained weight gain, unexplained weight loss, heat intolerance, cold intolerance NEUROLOGIC: Absent: headache, focal weakness or paresthesias, dizziness, unsteady gait, seizure, mental status changes, bladder or bowel incontinence PHYSICAL EXAMINATION Vital Signs - 24 hr 12/28/19 06:55 Temperature 98.1 F Pulse Rate 76 Respiratory 18 Rate Blood Pressure 122/77 O2 Sat by Pulse 100 Oximetry (%) GENERAL: Awake, alert, and fully oriented, in no acute distress. HEAD: Normal with no signs of trauma. EYES: Pupils equal, round and reactive to light, sclera anicteric, conjunctiva clear. LUNGS: Breath sounds equal, clear to auscultation bilaterally. No wheezes, and no crackles. No accessory muscle use. HEART: Regular rate and rhythm, normal S1 and S2 ABDOMEN: Soft, nontender, not distended MUSCULOSKELETAL: Normal range of motion at all joints. No bony deformities or tenderness. No CVA tenderness. UPPER EXTREMITIES: 2+ pulses, warm, well-perfused. No cyanosis. No clubbing. No peripheral edema. LOWER EXTREMITIES: 2+ pulses, warm, well-perfused. No calf tenderness. No peripheral edema. NEUROLOGICAL: Cranial nerves II-XII intact. Normal speech. ASSESSMENT/PLAN: 72 year-old female with a PMH significant for major depressive disorder. She presents today for ECT. Cardiac --no cardiac history --Revised Cardiac Risk Index for Pre-Operative Risk: 0 points, 0.4% risk of major cardiac event Pulmonary --no pulmonary history Neurological --no neurological or neurosurgical history; no history of trauma Anesthesia --no reported problems with anesthesia ECT is a low risk procedure. The relative benefits of the planned procedure outweigh the relative risks for this patient at this time. Visit type - Emergency Visit Emergency Visit: No - New Patient This patient is new to me today: Yes Date on this admission: 12/28/19 - Critical Care Critical Care patient: No
[2019-12-28] MEDS ORDERED: KETAMINE HCL 500 MG/10 ML VIAL ONE (07:35)
[2019-12-28 07:59] LABS: BASO % 0.9 % (0-2.0); EOS % 4.2 % (0-4.5); HEMOGLOBIN 12.3 GM/dl (10.7-15.3); LYMPH % 37.8 % (8-40); MCH 32.4 pg (25.7-33.7); MCHC 34.1 g/dl (32.0-36.0); MEAN CELL VOLUME 95.1 fl (80-96); MEAN PLT VOLUME 8.1 fl (7.5-11.1); MONO % 9.6 % (3.8-10.2); NEUT % 47.5 % (42.8-82.8); PLATELET COUNT 179 K/MM3 (134-434); RBC 3.79 M/mm3 (3.60-5.2); RDW 13.5 % (11.6-15.6); WHITE BLOOD COUNT 3.6 K/mm3 (4.0-10.8)
[2019-12-28 08:05] LABS: ALBUMIN 3.4 g/dl (3.4-5.0); BILIRUBIN,TOTAL 0.7 mg/dl (0.2-1); CALCIUM 8.9 mg/dl (8.5-10); CREATININE 0.7 mg/dl (0.55-1.3); POTASSIUM 3.8 mmol/L (3.5-5.1); TOT PROT 5.9 g/dl (6.4-8.2)
[2019-12-28 09:15] VITALS: BP 133/63; PULSE 69
--- NOTE | 2019-12-29 12:38 | EKG ---
Test Reason : Blood Pressure : / mmHG Vent. Rate : 073 BPM Atrial Rate : 073 BPM P-R Int : 162 ms QRS Dur : 088 ms QT Int : 374 ms P-R-T Axes : 077 -03 051 degrees QTc Int : 412 ms NORMAL SINUS RHYTHM CANNOT RULE OUT ANTERIOR INFARCT (CITED ON OR BEFORE 03-DEC-2018) ABNORMAL ECG WHEN COMPARED WITH ECG OF 08-JUN-2019 07:41, NO SIGNIFICANT CHANGE WAS FOUND Confirmed by MD Tawanna, Nick ([id number]) on 12/29/2019 12:38:18 PM Referred By: Prosper Smith Confirmed By:Nick Stacy MD
== END 2019-12-28 09:30 | disposition home or self-care (01) ==
LOC: FECT 05:44
PROVIDERS: ATTEND Psychiatry & Neurology Psychiatry
PROC: GZB4ZZZ Other Electroconvulsive Therapy (ICD-10-PCS; principal; 2019-12-28 07:00)
DX: F33.2 Major depressive disorder, recurrent severe without psychotic features (principal)
CPT/HCPCS: 36415; 80053; 85025; 90870; 93005; 94760

== ENCOUNTER 2021-04-05 09:43 | Day surgery (SDC) | payer OTHER, BC ==
[2021-04-04 16:25] VITALS: BMI 18.1
[2021-04-05 10:48] LABS: ALBUMIN 4.3 g/dl (3.4-5.0); BILIRUBIN,TOTAL 0.8 mg/dl (0.2-1); CALCIUM 9.4 mg/dl (8.5-10); CREATININE 0.6 mg/dl (0.55-1.3); TOT PROT 7.4 g/dl (6.4-8.2)
[2021-04-05] MEDS ORDERED: KETAMINE HCL 500 MG/10 ML VIAL ONE (10:49)
[2021-04-05 12:28] VITALS: BP 130/71; PULSE 69; TEMP 97.6
== END 2021-04-05 13:45 | disposition home or self-care (01) ==
LOC: FECT 09:43
PROVIDERS: ATTEND Psychiatry & Neurology Psychiatry
PROC: GZB4ZZZ Other Electroconvulsive Therapy (ICD-10-PCS; principal; 2021-04-05 10:30)
DX: F32.9 Major depressive disorder, single episode, unspecified (principal)
CPT/HCPCS: 36415; 80053; 90870; 94760

== ENCOUNTER 2021-04-09 10:47 | Day surgery (SDC) | payer OTHER, BC ==
[2021-04-06 09:53] VITALS: BMI 18.1
[2021-04-09 11:17] VITALS: TEMP 98.2
[2021-04-09] MEDS ORDERED: SUCCINYLCHOLINE CHLORIDE 200 MG/10 ML SYRINGE ONE (12:04)
[2021-04-09 13:20] VITALS: BP 123/73; PULSE 72
== END 2021-04-09 14:50 | disposition home or self-care (01) ==
LOC: FECT 10:47
PROVIDERS: ATTEND Psychiatry & Neurology Psychiatry
PROC: GZB4ZZZ Other Electroconvulsive Therapy (ICD-10-PCS; principal; 2021-04-09 12:00)
DX: F33.2 Major depressive disorder, recurrent severe without psychotic features (principal)
CPT/HCPCS: 90870; 94760

== ENCOUNTER 2021-04-13 06:30 | Day surgery (SDC) | payer OTHER, BC ==
[2021-04-13 06:47] VITALS: BMI 18.1
[2021-04-13] MEDS ORDERED: KETAMINE HCL 500 MG/10 ML VIAL ONE (07:22)
[2021-04-13] MEDS ORDERED: ACETAMINOPHEN 325 MG TABLET (FP) PO PRN (09:32)
[2021-04-13] MEDS ORDERED: ONDANSETRON 4 MG/2 ML VIAL IVPUSH PRN (09:32)
[2021-04-13 09:34] VITALS: TEMP 98
[2021-04-13 09:35] VITALS: BP 144/81; PULSE 77
[2021-04-13] MEDS ORDERED: LACTATED RINGERS SOLUTION 1,000 ML IV SCH (09:45)
== END 2021-04-13 10:00 | disposition home or self-care (01) ==
LOC: FECT 06:30
PROVIDERS: ATTEND Psychiatry & Neurology Psychiatry
PROC: GZB4ZZZ Other Electroconvulsive Therapy (ICD-10-PCS; principal; 2021-04-13 07:30)
DX: F33.2 Major depressive disorder, recurrent severe without psychotic features (principal)
CPT/HCPCS: 90870; 94760

== ENCOUNTER 2021-04-16 09:42 | Day surgery (SDC) | payer OTHER, BC ==
[2021-04-11 13:49] VITALS: BMI 18.1
[2021-04-16] MEDS ORDERED: KETAMINE HCL 500 MG/10 ML VIAL ONE (11:31)
[2021-04-16] MEDS ORDERED: ACETAMINOPHEN 325 MG TABLET (FP) PO PRN (11:58)
[2021-04-16] MEDS ORDERED: PROMETHAZINE HCL 25 MG/1 ML VIAL IVPB PRN (11:58)
[2021-04-16] MEDS ORDERED: LACTATED RINGERS SOLUTION 1,000 ML IV SCH (12:00)
[2021-04-16 12:01] VITALS: TEMP 98.6
[2021-04-16 13:19] VITALS: BP 139/79; PULSE 82
== END 2021-04-16 13:50 | disposition home or self-care (01) ==
LOC: FECT 09:42
PROVIDERS: ATTEND Psychiatry & Neurology Psychiatry
PROC: GZB4ZZZ Other Electroconvulsive Therapy (ICD-10-PCS; principal; 2021-04-16 11:00)
DX: F33.2 Major depressive disorder, recurrent severe without psychotic features (principal)
CPT/HCPCS: 90870; 94760

== ENCOUNTER 2021-04-19 07:17 | Day surgery (SDC) | payer OTHER, BC ==
[2021-04-17 08:48] VITALS: BMI 18.1
[2021-04-19] MEDS ORDERED: KETAMINE HCL 500 MG/10 ML VIAL ONE (09:32)
[2021-04-19 10:52] VITALS: TEMP 97
[2021-04-19 11:16] VITALS: BP 122/77; PULSE 73
[2021-04-19] MEDS ORDERED: ACETAMINOPHEN 325 MG TABLET (FP) PO PRN (13:42)
[2021-04-19] MEDS ORDERED: PROMETHAZINE HCL 25 MG/1 ML VIAL IVPUSH PRN (13:42)
[2021-04-19] MEDS ORDERED: ONDANSETRON 4 MG/2 ML VIAL IVPUSH PRN (13:42)
[2021-04-19] MEDS ORDERED: LACTATED RINGERS SOLUTION 1,000 ML IV SCH (13:45)
== END 2021-04-19 11:30 | disposition home or self-care (01) ==
LOC: FECT 07:17
PROVIDERS: ATTEND Psychiatry & Neurology Psychiatry
PROC: GZB4ZZZ Other Electroconvulsive Therapy (ICD-10-PCS; principal; 2021-04-19 09:30)
DX: F33.2 Major depressive disorder, recurrent severe without psychotic features (principal)
CPT/HCPCS: 90870; 94760

== ENCOUNTER 2021-04-24 07:19 | Day surgery (SDC) | payer OTHER, BC ==
[2021-04-24 08:07] VITALS: BMI 18.1
[2021-04-24] MEDS ORDERED: KETAMINE HCL 500 MG/10 ML VIAL ONE (08:19)
[2021-04-24 09:16] VITALS: TEMP 98.6
[2021-04-24 10:30] VITALS: BP 137/72; PULSE 82
== END 2021-04-24 11:00 | disposition home or self-care (01) ==
LOC: FECT 07:19
PROVIDERS: ATTEND Psychiatry & Neurology Psychiatry
PROC: GZB4ZZZ Other Electroconvulsive Therapy (ICD-10-PCS; principal; 2021-04-24 08:00)
DX: F32.9 Major depressive disorder, single episode, unspecified (principal)
CPT/HCPCS: 90870; 94760

== ENCOUNTER 2021-04-26 06:38 | Day surgery (SDC) | payer OTHER, BC ==
[2021-04-24 16:46] VITALS: BMI 18.1
[2021-04-26] MEDS ORDERED: KETAMINE HCL 500 MG/10 ML VIAL ONE (07:17)
[2021-04-26 09:39] VITALS: BP 142/68; PULSE 69; TEMP 97.7
== END 2021-04-26 09:30 | disposition home or self-care (01) ==
LOC: FECT 06:38
PROVIDERS: ATTEND Psychiatry & Neurology Psychiatry
PROC: GZB4ZZZ Other Electroconvulsive Therapy (ICD-10-PCS; principal; 2021-04-26 07:30)
DX: F32.9 Major depressive disorder, single episode, unspecified (principal)
CPT/HCPCS: 90870; 94760

== ENCOUNTER 2021-04-30 09:47 | Day surgery (SDC) | payer OTHER, BC ==
[2021-04-26 10:35] VITALS: BMI 18.1
[2021-04-30] MEDS ORDERED: KETAMINE HCL 500 MG/10 ML VIAL ONE (10:14)
[2021-04-30 11:41] VITALS: TEMP 98
[2021-04-30 12:37] VITALS: BP 122/75; PULSE 77
== END 2021-04-30 12:55 | disposition home or self-care (01) ==
LOC: FECT 09:47
PROVIDERS: ATTEND Psychiatry & Neurology Psychiatry
PROC: GZB4ZZZ Other Electroconvulsive Therapy (ICD-10-PCS; principal; 2021-04-30 10:30)
DX: F32.9 Major depressive disorder, single episode, unspecified (principal)
CPT/HCPCS: 90870; 94760

== ENCOUNTER 2021-05-03 07:36 | Day surgery (SDC) | payer OTHER, BC ==
[2021-04-26 10:37] VITALS: BMI 18.1
[2021-05-03 08:13] VITALS: TEMP 98
[2021-05-03] MEDS ORDERED: KETAMINE HCL 500 MG/10 ML VIAL ONE (09:10)
[2021-05-03 11:11] VITALS: BP 144/74; PULSE 72
== END 2021-05-03 11:05 | disposition home or self-care (01) ==
LOC: FECT 07:36
PROVIDERS: ATTEND Psychiatry & Neurology Psychiatry
PROC: GZB4ZZZ Other Electroconvulsive Therapy (ICD-10-PCS; principal; 2021-05-03 09:30)
DX: F32.9 Major depressive disorder, single episode, unspecified (principal)
CPT/HCPCS: 90870; 94760

== ENCOUNTER 2021-05-07 06:41 | Day surgery (SDC) | payer OTHER, BC ==
[2021-04-30 17:07] VITALS: BMI 18.1
[2021-05-07] MEDS ORDERED: KETAMINE HCL 500 MG/10 ML VIAL ONE (08:38)
[2021-05-07 10:02] VITALS: TEMP 98.1
[2021-05-07 10:52] VITALS: BP 127/72; PULSE 74
== END 2021-05-07 10:53 | disposition home or self-care (01) ==
LOC: FECT 06:41
PROVIDERS: ATTEND Psychiatry & Neurology Psychiatry
PROC: GZB4ZZZ Other Electroconvulsive Therapy (ICD-10-PCS; principal; 2021-05-07 09:00)
DX: F32.9 Major depressive disorder, single episode, unspecified (principal)
CPT/HCPCS: 90870; 94760

== ENCOUNTER 2021-05-10 07:09 | Day surgery (SDC) | payer OTHER, BC ==
[2021-05-10 07:36] VITALS: BMI 18.1
[2021-05-10] MEDS ORDERED: KETAMINE HCL 500 MG/10 ML VIAL ONE (08:44)
[2021-05-10 09:25] VITALS: TEMP 98
[2021-05-10 10:11] VITALS: BP 131/61; PULSE 77
== END 2021-05-10 10:40 | disposition home or self-care (01) ==
LOC: FECT 07:09
PROVIDERS: ATTEND Psychiatry & Neurology Psychiatry
PROC: GZB4ZZZ Other Electroconvulsive Therapy (ICD-10-PCS; principal; 2021-05-10 09:00)
DX: F32.9 Major depressive disorder, single episode, unspecified (principal)
CPT/HCPCS: 90870; 94760

== ENCOUNTER 2021-05-14 07:25 | Day surgery (SDC) | payer OTHER, BC ==
[2021-05-08 16:00] VITALS: BMI 18.1
[2021-05-14] MEDS ORDERED: KETAMINE HCL 500 MG/10 ML VIAL ONE (09:44)
[2021-05-14 10:47] VITALS: TEMP 98.4
[2021-05-14 11:33] VITALS: BP 125/61; PULSE 78
== END 2021-05-14 11:50 | disposition home or self-care (01) ==
LOC: FECT 07:25
PROVIDERS: ATTEND Psychiatry & Neurology Psychiatry
PROC: GZB4ZZZ Other Electroconvulsive Therapy (ICD-10-PCS; principal; 2021-05-14 09:30)
DX: F32.9 Major depressive disorder, single episode, unspecified (principal)
CPT/HCPCS: 90870; 94760

== ENCOUNTER 2021-05-21 06:31 | Day surgery (SDC) | payer OTHER, BC ==
[2021-05-08 16:07] VITALS: BMI 18.1
[2021-05-21] MEDS ORDERED: KETAMINE HCL 500 MG/10 ML VIAL ONE (08:17)
[2021-05-21 09:42] VITALS: TEMP 97.6
[2021-05-21 10:35] VITALS: BP 131/70; PULSE 78
== END 2021-05-21 11:05 | disposition home or self-care (01) ==
LOC: FECT 06:31
PROVIDERS: ATTEND Psychiatry & Neurology Psychiatry
PROC: GZB4ZZZ Other Electroconvulsive Therapy (ICD-10-PCS; principal; 2021-05-21 09:30)
DX: F32.9 Major depressive disorder, single episode, unspecified (principal)
CPT/HCPCS: 90870; 94760

== ENCOUNTER 2021-05-28 07:28 | Day surgery (SDC) | payer OTHER, BC ==
[2021-05-21 14:45] VITALS: BMI 18.1
[2021-05-28] MEDS ORDERED: SUCCINYLCHOLINE CHLORIDE 200 MG/10 ML SYRINGE ONE (09:36)
[2021-05-28] MEDS ORDERED: PROPOFOL 20 ML ONE (09:36)
[2021-05-28] MEDS ORDERED: KETAMINE HCL 500 MG/10 ML VIAL ONE (09:37)
[2021-05-28] MEDS ORDERED: ONDANSETRON 4 MG/2 ML VIAL ONE (09:49)
[2021-05-28] MEDS ORDERED: KETOROLAC TROMETHAMINE 30 MG/1 ML VIAL ONE (09:49)
[2021-05-28] MEDS ORDERED: DEXAMETHASONE SOD PHOSPHATE 4 MG/1 ML VIAL ONE (09:49)
[2021-05-28 10:44] VITALS: TEMP 98
[2021-05-28 11:13] VITALS: BP 131/76; PULSE 67
== END 2021-05-28 11:30 | disposition home or self-care (01) ==
LOC: FECT 07:28
PROVIDERS: ATTEND Psychiatry & Neurology Psychiatry
PROC: GZB4ZZZ Other Electroconvulsive Therapy (ICD-10-PCS; principal; 2021-05-28 09:30)
DX: F32.9 Major depressive disorder, single episode, unspecified (principal)
CPT/HCPCS: 90870; 94760

== ENCOUNTER 2021-06-04 10:28 | Day surgery (SDC) | payer OTHER, BC ==
[2021-05-31 13:56] VITALS: BMI 18.1
[2021-06-04] MEDS ORDERED: PROPOFOL 20 ML ONE (11:45)
[2021-06-04] MEDS ORDERED: KETAMINE HCL 500 MG/10 ML VIAL ONE (11:46)
[2021-06-04 12:57] VITALS: TEMP 97.3
[2021-06-04 13:31] VITALS: BP 121/74; PULSE 72
== END 2021-06-04 13:30 | disposition home or self-care (01) ==
LOC: FECT 10:28
PROVIDERS: ATTEND Psychiatry & Neurology Psychiatry
PROC: GZB4ZZZ Other Electroconvulsive Therapy (ICD-10-PCS; principal; 2021-06-04 11:30)
DX: F32.9 Major depressive disorder, single episode, unspecified (principal)
CPT/HCPCS: 90870; 94760

== ENCOUNTER 2021-06-14 06:02 | Day surgery (SDC) | payer OTHER, BC ==
[2021-06-06 13:15] VITALS: BMI 18.1
[2021-06-14] MEDS ORDERED: KETAMINE HCL 500 MG/10 ML VIAL ONE (07:22)
[2021-06-14 08:01] VITALS: TEMP 98
[2021-06-14 11:19] VITALS: BP 128/79; PULSE 72
== END 2021-06-14 11:00 | disposition home or self-care (01) ==
LOC: FECT 06:02
PROVIDERS: ATTEND Psychiatry & Neurology Psychiatry
PROC: GZB4ZZZ Other Electroconvulsive Therapy (ICD-10-PCS; principal; 2021-06-14 07:30)
DX: F32.9 Major depressive disorder, single episode, unspecified (principal)
CPT/HCPCS: 90870; 94760; C9803; U0003; U0005

== ENCOUNTER 2021-06-18 09:18 | Day surgery (SDC) | payer OTHER, BC ==
[2021-06-18 09:50] VITALS: BMI 18.1
[2021-06-18] MEDS ORDERED: KETAMINE HCL 500 MG/10 ML VIAL ONE (10:27)
[2021-06-18 12:09] VITALS: PULSE 72; TEMP 97.9
[2021-06-18 12:37] VITALS: BP 125/62
== END 2021-06-18 12:38 | disposition home or self-care (01) ==
LOC: FECT 09:18
PROVIDERS: ATTEND Psychiatry & Neurology Psychiatry
PROC: GZB4ZZZ Other Electroconvulsive Therapy (ICD-10-PCS; principal; 2021-06-18 11:00)
DX: F33.2 Major depressive disorder, recurrent severe without psychotic features (principal)
CPT/HCPCS: 90870; 94760

== ENCOUNTER 2021-06-26 08:16 | Day surgery (SDC) | payer OTHER, BC ==
[2021-06-18 15:23] VITALS: BMI 18.1
[2021-06-26] MEDS ORDERED: KETAMINE HCL 500 MG/10 ML VIAL ONE (09:13)
[2021-06-26 10:39] VITALS: TEMP 97.6
[2021-06-26 11:31] VITALS: BP 142/81; PULSE 76
== END 2021-06-26 12:58 | disposition home or self-care (01) ==
LOC: FECT 08:16
PROVIDERS: ATTEND Psychiatry & Neurology Psychiatry
PROC: GZB4ZZZ Other Electroconvulsive Therapy (ICD-10-PCS; principal; 2021-06-26 07:30)
DX: F32.9 Major depressive disorder, single episode, unspecified (principal)
CPT/HCPCS: 90870; 94760

== ENCOUNTER 2021-07-02 09:49 | Day surgery (SDC) | payer OTHER, BC ==
[2021-06-26 12:25] VITALS: BMI 18.1
[2021-07-02] MEDS ORDERED: KETAMINE HCL 500 MG/10 ML VIAL ONE (11:21)
[2021-07-02] MEDS ORDERED: PROPOFOL 20 ML ONE (11:34)
[2021-07-02 12:04] VITALS: TEMP 97.1
[2021-07-02 13:31] VITALS: BP 134/64; PULSE 77
== END 2021-07-02 14:05 | disposition home or self-care (01) ==
LOC: FECT 09:49
PROVIDERS: ATTEND Psychiatry & Neurology Psychiatry
PROC: GZB4ZZZ Other Electroconvulsive Therapy (ICD-10-PCS; principal; 2021-07-02 10:30)
DX: F32.9 Major depressive disorder, single episode, unspecified (principal)
CPT/HCPCS: 90870; 94760

== ENCOUNTER 2021-07-13 06:32 | Day surgery (SDC) | payer OTHER, BC ==
[2021-07-09 11:25] VITALS: BMI 18.1
[2021-07-13 07:33] VITALS: TEMP 98.1
[2021-07-13] MEDS ORDERED: KETAMINE HCL 500 MG/10 ML VIAL ONE (08:43)
[2021-07-13 10:16] VITALS: BP 145/75; PULSE 79
== END 2021-07-13 11:15 | disposition home or self-care (01) ==
LOC: FECT 06:32
PROVIDERS: ATTEND Psychiatry & Neurology Psychiatry
PROC: GZB4ZZZ Other Electroconvulsive Therapy (ICD-10-PCS; principal; 2021-07-13 08:30)
DX: F32.9 Major depressive disorder, single episode, unspecified (principal)
CPT/HCPCS: 90870; 94760

== ENCOUNTER 2021-07-19 07:48 | Day surgery (SDC) | payer OTHER, BC ==
[2021-07-16 11:03] VITALS: BMI 18.1
[2021-07-19] MEDS ORDERED: KETAMINE HCL 500 MG/10 ML VIAL ONE (09:31)
[2021-07-19] MEDS ORDERED: PROPOFOL 20 ML ONE (09:40)
[2021-07-19 10:33] VITALS: TEMP 97.5
[2021-07-19 11:25] VITALS: BP 135/70; PULSE 61
== END 2021-07-19 11:25 | disposition home or self-care (01) ==
LOC: FECT 07:48
PROVIDERS: ATTEND Psychiatry & Neurology Psychiatry
PROC: GZB4ZZZ Other Electroconvulsive Therapy (ICD-10-PCS; principal; 2021-07-19 10:00)
DX: F32.9 Major depressive disorder, single episode, unspecified (principal)
CPT/HCPCS: 90870; 94760

== ENCOUNTER 2021-07-26 09:34 | Day surgery (SDC) | payer OTHER, BC ==
[2021-07-26 10:16] VITALS: BMI 18.1
[2021-07-26] MEDS ORDERED: KETAMINE HCL 500 MG/10 ML VIAL ONE (11:48)
[2021-07-26 12:48] VITALS: TEMP 97.6
[2021-07-26 13:53] VITALS: BP 132/72; PULSE 76
== END 2021-07-26 13:56 | disposition home or self-care (01) ==
LOC: FECT 09:34
PROVIDERS: ATTEND Psychiatry & Neurology Psychiatry
PROC: GZB4ZZZ Other Electroconvulsive Therapy (ICD-10-PCS; principal; 2021-07-26 11:00)
DX: F32.9 Major depressive disorder, single episode, unspecified (principal)
CPT/HCPCS: 90870; 94760

== ENCOUNTER → 2021-08-06 | Day surgery (SDC) | payer OTHER, BC ==
[2021-08-02 10:24] VITALS: BMI 18.1
[~2021-08-06] MED LIST changes: +KETAMINE HCL 500 MG/10 ML VIAL ONE; -LACTATED RINGERS SOLUTION 1,000 ML IV SCH; +SUCCINYLCHOLINE CHLORIDE 200 MG/10 ML SYRINGE ONE
[2021-08-06 12:07] VITALS: TEMP 97.7
[2021-08-06 12:34] VITALS: BP 126/74; PULSE 74
== END | disposition home or self-care (01) ==
LOC: FECT 09:36
PROVIDERS: ATTEND Psychiatry & Neurology Psychiatry
PROC: GZB4ZZZ Other Electroconvulsive Therapy (ICD-10-PCS; principal; 2021-08-06 10:30)
DX: F32.9 Major depressive disorder, single episode, unspecified (principal)
CPT/HCPCS: 90870; 94760

== ENCOUNTER 2021-08-23 07:50 | Day surgery (SDC) | payer OTHER, BC ==
[2021-08-23 08:22] VITALS: BMI 18.1
[2021-08-23] MEDS ORDERED: KETAMINE HCL 500 MG/10 ML VIAL ONE (09:06)
[2021-08-23 11:16] VITALS: BP 149/82; PULSE 78; TEMP 97.8
== END 2021-08-23 11:10 | disposition home or self-care (01) ==
LOC: FECT 07:50
PROVIDERS: ATTEND Psychiatry & Neurology Psychiatry
PROC: GZB4ZZZ Other Electroconvulsive Therapy (ICD-10-PCS; principal; 2021-08-23 10:00)
DX: F32.9 Major depressive disorder, single episode, unspecified (principal)
CPT/HCPCS: 90870; 94760

== ENCOUNTER 2021-09-06 09:57 | Day surgery (SDC) | payer OTHER, BC ==
[2021-08-13 09:45] VITALS: BMI 18.1
[2021-09-06] MEDS ORDERED: KETAMINE HCL 500 MG/10 ML VIAL ONE (11:09)
[2021-09-06] MEDS ORDERED: ONDANSETRON 4 MG/2 ML VIAL ONE (11:12)
[2021-09-06 12:18] VITALS: TEMP 97.7
[2021-09-06 13:23] VITALS: BP 140/76; PULSE 74
== END 2021-09-06 13:40 | disposition home or self-care (01) ==
LOC: FECT 09:57
PROVIDERS: ATTEND Psychiatry & Neurology Psychiatry
PROC: GZB4ZZZ Other Electroconvulsive Therapy (ICD-10-PCS; principal; 2021-09-06 10:30)
DX: F32.9 Major depressive disorder, single episode, unspecified (principal)
CPT/HCPCS: 90870; 94760

== ENCOUNTER 2021-09-21 07:44 | Day surgery (SDC) | payer OTHER, BC ==
[2021-09-21 08:15] VITALS: BMI 18.1
[2021-09-21] MEDS ORDERED: KETAMINE HCL 500 MG/10 ML VIAL ONE (08:35)
[2021-09-21 09:59] VITALS: TEMP 97.7
[2021-09-21 10:21] VITALS: BP 133/73; PULSE 84
== END 2021-09-21 10:35 | disposition home or self-care (01) ==
LOC: FECT 07:44
PROVIDERS: ATTEND Psychiatry & Neurology Psychiatry
PROC: GZB4ZZZ Other Electroconvulsive Therapy (ICD-10-PCS; principal; 2021-09-21 09:30)
DX: F32.9 Major depressive disorder, single episode, unspecified (principal)
CPT/HCPCS: 90870; 94760

== ENCOUNTER 2021-10-04 08:52 | Day surgery (SDC) | payer OTHER, BC ==
[2021-10-04 09:42] VITALS: BMI 16.8
[2021-10-04] MEDS ORDERED: KETAMINE HCL 500 MG/10 ML VIAL ONE (10:46)
[2021-10-04 10:48] LABS: CALCIUM 9.3 mg/dl (8.5-10); CREATININE 0.6 mg/dl (0.55-1.3); TOT PROT 6.4 g/dl (6.4-8.2)
[2021-10-04] MEDS ORDERED: SUCCINYLCHOLINE CHLORIDE 200 MG/10 ML SYRINGE ONE (10:48)
[2021-10-04 12:38] LABS: BASO % 0.7 % (0-2.0); EOS % 1.2 % (0-4.5); LYMPH % 29.9 % (8-40); MCH 32.1 pg (25.7-33.7); MCHC 34.2 g/dl (32.0-36.0); MEAN CELL VOLUME 93.9 fl (80-96); MEAN PLT VOLUME 8.3 fl (7.5-11.1); MONO % 7.3 % (3.8-10.2); NEUT % 60.9 % (42.8-82.8); PLATELET COUNT 189 10^3/uL (134-434); RBC 4.05 M/mm3 (3.60-5.2); RDW 13.7 % (11.6-15.6); WHITE BLOOD COUNT 3.9 K/mm3 (4.0-10.0)
[2021-10-04 13:03] VITALS: BP 116/62; PULSE 77; TEMP 98.1
== END 2021-10-04 13:05 | disposition home or self-care (01) ==
LOC: FECT 08:52
PROVIDERS: ATTEND Psychiatry & Neurology Psychiatry
PROC: GZB4ZZZ Other Electroconvulsive Therapy (ICD-10-PCS; principal; 2021-10-04 10:30)
DX: F32.9 Major depressive disorder, single episode, unspecified (principal)
CPT/HCPCS: 36415; 80053; 85025; 90870; 93005; 94760

== ENCOUNTER 2021-10-18 09:34 | Day surgery (SDC) | payer OTHER, BC ==
[2021-10-16 09:05] VITALS: BMI 16.8
[2021-10-18] MEDS ORDERED: KETAMINE HCL 500 MG/10 ML VIAL ONE (10:29)
[2021-10-18 11:57] VITALS: TEMP 98
[2021-10-18 12:14] VITALS: BP 135/75; PULSE 72
== END 2021-10-18 13:05 | disposition home or self-care (01) ==
LOC: FECT 09:34
PROVIDERS: ATTEND Psychiatry & Neurology Psychiatry
PROC: GZB4ZZZ Other Electroconvulsive Therapy (ICD-10-PCS; principal; 2021-10-18 11:30)
DX: F32.9 Major depressive disorder, single episode, unspecified (principal)
CPT/HCPCS: 90870; 94760

== ENCOUNTER 2021-11-01 09:41 | Day surgery (SDC) | payer OTHER, BC ==
[2021-10-23 15:05] VITALS: BMI 16.8
[2021-11-01] MEDS ORDERED: KETAMINE HCL 500 MG/10 ML VIAL ONE (11:09)
[2021-11-01 12:17] VITALS: TEMP 97.8
[2021-11-01 13:29] VITALS: BP 126/74; PULSE 71
== END 2021-11-01 13:30 | disposition home or self-care (01) ==
LOC: FECT 09:41
PROVIDERS: ATTEND Psychiatry & Neurology Psychiatry
PROC: GZB4ZZZ Other Electroconvulsive Therapy (ICD-10-PCS; principal; 2021-11-01 11:00)
DX: F32.9 Major depressive disorder, single episode, unspecified (principal)
CPT/HCPCS: 90870; 94760

== ENCOUNTER 2021-11-15 08:19 | Day surgery (SDC) | payer OTHER, BC ==
[2021-11-12 13:51] VITALS: BMI 16.8
[2021-11-15] MEDS ORDERED: KETAMINE HCL 500 MG/10 ML VIAL ONE (09:26)
[2021-11-15 10:40] VITALS: TEMP 98
[2021-11-15 10:53] VITALS: BP 129/62; PULSE 80
== END 2021-11-15 11:55 | disposition home or self-care (01) ==
LOC: FECT 08:19
PROVIDERS: ATTEND Psychiatry & Neurology Psychiatry
PROC: GZB4ZZZ Other Electroconvulsive Therapy (ICD-10-PCS; principal; 2021-11-15 09:30)
DX: F32.9 Major depressive disorder, single episode, unspecified (principal)
CPT/HCPCS: 90870; 94760

== ENCOUNTER 2021-11-29 09:39 | Day surgery (SDC) | payer OTHER, BC ==
[2021-11-29 10:04] VITALS: BMI 16.0
[2021-11-29] MEDS ORDERED: KETAMINE HCL 500 MG/10 ML VIAL ONE (10:36)
[2021-11-29 12:00] VITALS: TEMP 97.7
[2021-11-29 13:03] VITALS: BP 115/65; PULSE 85
== END 2021-11-29 13:08 | disposition home or self-care (01) ==
LOC: FECT 09:39
PROVIDERS: ATTEND Psychiatry & Neurology Psychiatry
PROC: GZB4ZZZ Other Electroconvulsive Therapy (ICD-10-PCS; principal; 2021-11-29 10:30)
DX: F32.9 Major depressive disorder, single episode, unspecified (principal)
CPT/HCPCS: 90870; 94760

== ENCOUNTER 2021-12-13 06:46 | Day surgery (SDC) | payer OTHER, BC ==
[2021-12-07 17:18] VITALS: BMI 15.9
[2021-12-13 10:29] VITALS: PULSE 82; TEMP 98.4
[2021-12-13 10:45] VITALS: BP 142/74
== END 2021-12-13 11:50 | disposition home or self-care (01) ==
LOC: FECT 06:46
PROVIDERS: ATTEND Psychiatry & Neurology Psychiatry
PROC: GZB4ZZZ Other Electroconvulsive Therapy (ICD-10-PCS; principal; 2021-12-13 09:07)
DX: F33.2 Major depressive disorder, recurrent severe without psychotic features (principal)
CPT/HCPCS: 90870; 94760

== ENCOUNTER 2021-12-27 10:00 | Day surgery (SDC) | payer OTHER, BC ==
[2021-12-26 13:07] VITALS: BMI 15.9
[2021-12-27] MEDS ORDERED: KETAMINE HCL 500 MG/10 ML VIAL ONE (11:55)
[2021-12-27 12:35] VITALS: TEMP 97.7
[2021-12-27 13:33] VITALS: BP 137/77; PULSE 88
== END 2021-12-27 14:00 | disposition home or self-care (01) ==
LOC: FECT 10:00
PROVIDERS: ATTEND Psychiatry & Neurology Psychiatry
PROC: GZB4ZZZ Other Electroconvulsive Therapy (ICD-10-PCS; principal; 2021-12-27 12:10)
DX: F32.9 Major depressive disorder, single episode, unspecified (principal)
CPT/HCPCS: 90870; 94760